=== PATIENT | male | born 1935 ===

== ENCOUNTER 2017-08-01 07:21 | Emergency (ER) | payer MEDICARE ==
[2017-08-01 07:30] VITALS: BMI 22.6
[2017-08-01 07:31] VITALS: TEMP 97; O2SAT 98
[2017-08-01] MEDS ORDERED: Sodium Chloride 0.9% 1,000 ML IV STA (07:48)
--- NOTE | 2017-08-01 08:11 | ED PDOC ---
Lower Extremity Pain/Injury Time Seen by Provider: 08/01/17 07:27 Chief Complaint (Nursing): Lower Extremity Problem/Injury Chief Complaint (Provider): Bilateral lower leg numbness History Per: Patient, EMS History/Exam Limitations: no limitations Onset/Duration Of Symptoms: Days (x 1 month) Current Symptoms Are (Timing): Still Present Additional Complaint(s): Jamil is a 81 y/o male who was brought to the ED by EMS for evaluation of bilateral lower leg numbness and pain, ongoing for 1 month. The numbness is from the knee down. Patient also fell 2 weeks ago and hit his head, but did not seek medical attention. Denies any chest pain, shortness of breath, nausea, vomiting, diarrhea, headache, dizziness, or weakness. During the history, patient is moving hands sporadically but denies history of Parkinson's or dementia. PMD: Dr. De Jesus Neurologist: Dr. Shirley NIHSS Stroke Scale - Date/Time Evaluation Performed Date Performed: 08/01/17 Time Performed: 07:47 - How Severe is the Stroke Level of Consciousness: 0=Alert LOC to Questions: 0=Both comments correct LOC to commands: 0=Obeys both correctly Best Gaze: 0=Normal Visual: 0=No visual loss Facial: 0=Normal Motor Arm - Left: 0=No drift Motor Arm - Right: 0=No drift Motor Leg - Left: 0=No drift Motor Leg - Right: 0=No drift Limb Ataxia: 0=Absent Sensory: 0=Normal Best Language: 0=No aphasia Dysarthia: 0=Normal articulation Extinction & Inattention (Neglect): 0=Normal, no object Score: 0 rTPA Inclusion/Exclusion - Refusal of Treatment Patient Refused Treatment: No - Inclusion Criteria for Altepase Patient is 18 years or Older: Yes The Clinical Diagnosis of Ischemic Stroke That is Causing a Potentially Disabling Neurological Deficit: No Time of Onset is Well Established to be Less Than 270 Minute Before Treatment Would Begin: No Risk/Benefit Discussed With Patient/Family Member Present: No Past Medical History Reviewed: Historical Data, Nursing Documentation, Vital Signs Vital Signs: Last Vital Signs Temp 97 F L 08/01/17 07:30 Pulse 100 H 08/01/17 07:30 Resp 18 08/01/17 07:30 BP 126/85 08/01/17 07:30 Pulse Ox 98 08/01/17 07:30 - Medical History PMH: Anxiety, Arthritis (back and knees), Diabetes, HTN Denies: Chronic Kidney Disease Other PMH: Neuropathy - Surgical History Surgical History: Hernia Repair - Family History Family History: States: Unknown Family Hx - Social History Current smoker - smoking cessation education provided: No Alcohol: Occasional Drugs: Denies - Immunization History Hx Tetanus Toxoid Vaccination: No Hx Influenza Vaccination: No Hx Pneumococcal Vaccination: No - Home Medications Home Medications: Ambulatory Orders Medication Instructions Recorded ALPRAZolam [Xanax] 1 mg PO BID 11/03/16 Benztropine [Cogentin] 1 mg PO TID #90 tab 11/06/16 Gabapentin [Neurontin] 300 mg PO TID #90 cap 11/06/16 Nortriptyline [Pamelor] 25 mg PO Q12 08/01/17 Zolpidem Tartrate [Ambien] 10 mg PO HS 08/01/17 amLODIPine [Norvasc] 5 mg PO DAILY 08/01/17 - Allergies Allergies/Adverse Reactions: Allergies Allergy/AdvReac Type Severity Reaction Status Date / Time No Known Allergies Allergy Verified 11/03/16 14:35 Wells Criteria for PE - Wells Criteria for Pulmonary Embolism Immobilization at least 3 days;Surgery previous 4 weeks: No Total Score: 0 Review of Systems ROS Statement: Except As Marked, All Systems Reviewed And Found Negative Constitutional: Negative for: Fever, Chills Cardiovascular: Negative for: Chest Pain Respiratory: Negative for: Cough, Shortness of Breath Gastrointestinal: Negative for: Nausea, Vomiting, Abdominal Pain, Diarrhea Musculoskeletal: Positive for: Leg Pain (bilateral lower leg, from the knee down ) Neurological: Positive for: Numbness (at bilateral lower legs, from the knee down). Negative for: Weakness, Headache, Dizziness Physical Exam - Reviewed Nursing Documentation Reviewed: Yes Vital Signs Reviewed: Yes - Physical Exam Appears: Positive for: Non-toxic, No Acute Distress Head Exam: Positive for: NORMOCEPHALIC (Left forehead with hematoma). Negative for: ATRAUMATIC Skin: Positive for: Normal Color, Warm, Dry Eye Exam: Positive for: EOMI, Normal appearance, PERRL ENT: Positive for: Normal ENT Inspection. Negative for: Pharyngeal Erythema, Tonsillar Exudate Neck: Positive for: Normal, Painless ROM, Supple Cardiovascular/Chest: Positive for: Regular Rate, Rhythm. Negative for: Murmur Respiratory: Positive for: Normal Breath Sounds. Negative for: Accessory Muscle Use, Respiratory Distress Pulses-Dorsalis Pedis (L): 2+ Pulses-Dorsalis Pedis (R): 2+ Gastrointestinal/Abdominal: Positive for: Normal Exam, Soft. Negative for: Tenderness Back: Positive for: Normal Inspection. Negative for: L CVA Tenderness, R CVA Tenderness, Vertebral Tenderness Extremity: Positive for: Normal ROM (full ROM of lower extremities), Other (5/5 strength throughout all extremities. No gross deformities or deficits). Negative for: Tenderness, Pedal Edema, Deformity Neurologic/Psych: Positive for: Alert, Oriented, Other (On rest, patient with sporadic hand twitching. When provider not in the room, patient has no involuntary movements or twitching). Negative for: Motor/Sensory Deficits - Laboratory Results Result Diagrams: 08/01/17 08:00 08/01/17 08:00 Interpretation Of Abn Labs: 30/1.7 bun/cr worsening - ECG ECG: Positive for: Interpreted By Me, Viewed By Me ECG Rhythm: Positive for: Nonspecific Changes Interpretation Of Abn EKG: same as old O2 Sat by Pulse Oximetry: 98 (RA) Pulse Ox Interpretation: Normal - CT Scan/US CT Head w/o contrast Other Rad Studies (CT/US): Read By Radiologist, Radiology Report Reviewed Other Rad Interpretation: *See findings below US Lower Extrem Vein Bilat Other Rad Studies (CT/US): Read By Radiologist, Radiology Report Reviewed Other Rad Interpretation: No evidence of DVT in right or left lower extremity - Progress ED Course And Treament: CT HEAD W/O CONTRAST IMPRESSION: Limited examination. Patient motion artifact. No evidence of intracranial hemorrhage. Atrophy and chronic white matter ischemic change. Left frontal scalp hematoma. Paranasal sinusitis peer 1121: Stable. AAOx3. Pain controlled. Pending call back from Dr. De Jesus. 1135: Spoke with Dr. De Jesus. Well known to him. Made aware of blood findings. Renal functioning slightly worsening. FU with Dr. De Jesus. Pt. to be dc. Medical Decision Making Medical Decision Making: Old records reviewed. Patient was seen in ED during 10/2016 for issues such as change in mental status, benzodiazepine abuse, and chronic back pain. Time: 7:47 Initial Plan: --EKG --CMP --Troponin I --CBC --Sodium chloride 1000 ml at 1000 mls/hr --Tylenol 650 mg PO --CT Head w/o contrast --US Duplex Lower Extremity Vein, Bilateral --Pending reevaluation Scribe Attestation: Documented by Vashti Whitten, acting as a scribe for Dillon Rivera MD Provider Scribe Attestation: All medical record entries made by the Scribe were at my direction and personally dictated by me. I have reviewed the chart and agree that the record accurately reflects my personal performance of the history, physical exam, medical decision making, and the department course for this patient. I have also personally directed, reviewed, and agree with the discharge instructions and disposition. Disposition - Clinical Impression Clinical Impression: Renal insufficiency, Leg pain Counseled Patient/Family Regarding: Studies Performed, Diagnosis, Need For Followup - Disposition Referrals: Mejia De Jesus MD [Staff Provider] - 08/02/17 Disposition: Routine/Home Disposition Time: 11:37 Condition: STABLE Additional Instructions: Return in 3 days if not better. Instructions: Leg Pain (ED), Impaired Kidney Function (ED) Print Language: AFGHAN
[2017-08-01 08:16] LABS: BASO % 0.2 % (0.0-2.0); EOS # 0.1 K/uL (0.0-0.7); EOS % 1.3 % (0.0-4.0); LYMPH # 0.8 K/uL (1.0-4.3); LYMPH % 10.8 % (20.0-40.0); MEAN CELL VOLUME 89.6 fl (80.0-94.0); MEAN CORPUSCULAR HGB CONC 34.7 g/dL (33.0-37.0); MEAN PLATELET VOLUME 7.1 fl (7.2-11.7); MONO # 0.6 K/uL (0.0-0.8); MONO % 7.8 % (0.0-10.0); NEUT % 79.9 % (50.0-75.0); RED CELL DISTRIBUTION WIDTH 13.8 % (11.5-14.5); WHITE BLOOD COUNT 7.4 K/uL (4.8-10.8)
[2017-08-01 08:53] LABS: ALB/GLOB RATIO 1.3 (1.0-2.1); BILIRUBIN,TOTAL 0.5 mg/dl (0.2-1.3); CALCIUM 9.8 mg/dL (8.4-10.2); POTASSIUM 3.8 MMOL/L (3.6-5.0); TOTAL PROTEIN 6.9 G/DL (6.3-8.2)
[2017-08-01 09:11] LABS: TROPONIN I 0.022 ng/mL (0.00-0.120)
--- NOTE | 2017-08-01 09:24 | CT ---
PROCEDURE: CT HEAD WITHOUT CONTRAST. HISTORY: headache COMPARISON: None available. TECHNIQUE: Axial computed tomography images were obtained through the head/brain without intravenous contrast. Radiation dose: Total exam DLP = 1298.19 mGy-cm. This CT exam was performed using one or more of the following dose reduction techniques: Automated exposure control, adjustment of the mA and/or kV according to patient size, and/or use of iterative reconstruction technique. FINDINGS: HEMORRHAGE: Examination moderately limited due to extensive patient motion artifact. The examination was performed with helical technique due to patient motion. No evidence of intracranial hemorrhage. BRAIN: No mass effect or edema. Mild diffuse age-appropriate cerebral atrophy. Mild chronic periventricular white matter ischemic change. VENTRICLES: Mild ventricular dilatation likely due to ex vacuo dilatation from central greater than peripheral atrophy. No midline shift. CALVARIUM: No fracture. Left frontal scalp hematoma. PARANASAL SINUSES: Chronic ethmoid and frontal sinusitis. MASTOID AIR CELLS: Unremarkable as visualized. No inflammatory changes. OTHER FINDINGS: None. IMPRESSION: Limited examination. Patient motion artifact. No evidence of intracranial hemorrhage. Atrophy and chronic white matter ischemic change. Left frontal scalp hematoma. Paranasal sinusitis peer
--- NOTE | 2017-08-01 10:11 | US ---
PROCEDURE: Bilateral lower extremity venous duplex Doppler. HISTORY: r/o dvt COMPARISON: None available. TECHNIQUE: Bilateral common femoral, superficial femoral, popliteal and posterior tibial veins were evaluated. Flow was assessed with color Doppler, compressibility, assessment of phasic flow and augmentation response. FINDINGS: COMMON FEMORAL VEIN: Right CFV: Unremarkable. Left CFV: Unremarkable. SUPERFICIAL FEMORAL VEIN: Right SFV: Unremarkable. Left SFV: Unremarkable. POPLITEAL VEIN: Right Popliteal: Unremarkable. Left Popliteal: Unremarkable. POSTERIOR TIBIAL VEIN: Right PTV: Unremarkable. Left PTV: Unremarkable. OTHER FINDINGS: None. IMPRESSION: No evidence of deep venous thrombosis in the right or left lower extremity. .
[2017-08-01 13:54] VITALS: BP 126/78; PULSE 78; RESP 19
--- NOTE | 2017-08-01 15:27 | CARD ---
APPROVED REPORT EKG Measurement Heart [id number] <Conclusion> Normal sinus rhythm Septal infarct, age undetermined Possible Lateral infarct, age undetermined Abnormal ECG
== END 2017-08-01 13:54 | disposition home or self-care (01) ==
LOC: H.ER 07:21
DX: R20.2 Paresthesia of skin (principal); R94.4 Abnormal results of kidney function studies; M79.606 Pain in leg, unspecified; E11.9 Type 2 diabetes mellitus without complications; F41.9 Anxiety disorder, unspecified; I10 Essential (primary) hypertension; J32.9 Chronic sinusitis, unspecified
CPT/HCPCS: 70450; 80053; 84484; 85025; 93005; 93970; 99282; J7040

== ENCOUNTER 2017-08-20 13:49 | Inpatient (IN) | payer MEDICARE ==
[2017-08-20 13:49] VITALS: BMI 22.6
[2017-08-20] MEDS ORDERED: Sodium Chloride 0.9% 1,000 ML IV STA ×3 (14:34→19:14)
--- NOTE | 2017-08-20 14:53 | RAD ---
HISTORY: fall COMPARISON: No prior. FINDINGS: LUNGS: The lungs are clear. PLEURA: No significant pleural effusion identified, no pneumothorax apparent. CARDIOVASCULAR: Normal. OSSEOUS STRUCTURES: There are old fracture deformities in 1 of the mid right posterior ribs and multiple old fracture deformities in left mid posterior ribs. VISUALIZED UPPER ABDOMEN: Normal. OTHER FINDINGS: None. IMPRESSION: No acute findings.
--- NOTE | 2017-08-20 14:56 | ED PDOC ---
HPI: Trauma/Fall - HPI Time Seen by Provider: 08/20/17 14:01 Chief Complaint (Nursing): Trauma Chief Complaint (Provider): Fall History Per: Patient, Other (Homemaker) History/Exam Limitations: clinical condition Onset/Duration Of Symptoms: Days (1) Additional Complaint(s): Patient is a 81 y/o male with a past medical history of Parkinson's disease presenting to the emergency department for trauma following a fall this morning. Per homemaker, patient was found on the ground of his apartment this morning. Notes that the last time he was seen well was yesterday morning and also notes that he recently started his medication for Parkinson's disease. It is further noted that patient is a poor historian and cannot recall exactly when he fell. Due to his clinical condition, history is limited. PCP: Dr. Raul Barber (per [facility] prior PMD Neal but recently changed to Sunil) Past Medical History Reviewed: Historical Data, Nursing Documentation, Vital Signs Vital Signs: Last Vital Signs Temp 98.1 F 08/20/17 13:50 Pulse 85 08/20/17 13:50 Resp 16 08/20/17 13:50 BP 109/76 08/20/17 13:50 Pulse Ox 100 08/20/17 13:50 - Medical History PMH: Anxiety, Arthritis (back and knees), Diabetes, HTN, Parkinson's Disease Denies: Chronic Kidney Disease - Surgical History Surgical History: Hernia Repair - Family History Family History: States: Unknown Family Hx - Living Arrangements Living Arrangements: With Friends/Others (Homemaker) - Immunization History Hx Tetanus Toxoid Vaccination: No Hx Influenza Vaccination: No Hx Pneumococcal Vaccination: No - Home Medications Home Medications: Ambulatory Orders Medication Instructions Recorded Benztropine [Cogentin] 1 mg PO TID #90 tab 11/06/16 Gabapentin [Neurontin] 300 mg PO TID #90 cap 11/06/16 Nortriptyline [Pamelor] 25 mg PO Q12 08/01/17 amLODIPine [Norvasc] 5 mg PO DAILY 08/01/17 - Allergies Allergies/Adverse Reactions: Allergies Allergy/AdvReac Type Severity Reaction Status Date / Time No Known Allergies Allergy Verified 11/03/16 14:35 Review of Systems Review Of Systems: ROS cannot be obtained secondary to pt's inabilty to answer questions. Physical Exam - Reviewed Nursing Documentation Reviewed: Yes Vital Signs Reviewed: Yes - Physical Exam Appears: Positive for: No Acute Distress (significantly dehydrated, multiple visible sores/abrasions (appear older than one day)) Head Exam: Positive for: NORMOCEPHALIC. Negative for: ATRAUMATIC Skin: Positive for: Normal Color (with old chronic-appearing ulcer to right cheek, sores to chest, abrasions/contusions to legs and arms), Warm, Dry Eye Exam: Positive for: Periorbital swelling (right eye), Other (discharge from right eye). Negative for: Normal appearance ENT: Positive for: Other (Dry mucuous membranes) Neck: Positive for: Normal Cardiovascular/Chest: Positive for: Regular Rate, Rhythm. Negative for: Murmur Respiratory: Positive for: Normal Breath Sounds. Negative for: Accessory Muscle Use, Respiratory Distress Pulses-Radial (L): 3+/4+ Pulses-Radial (R): 3+/4+ Gastrointestinal/Abdominal: Negative for: Tenderness, Guarding Back: Negative for: Vertebral Tenderness Extremity: Positive for: Normal ROM, Other (Abrasions and contusions to both knees and elbows). Negative for: Pedal Edema Neurologic/Psych: Positive for: Alert, Oriented (x2 to person and hospital), Motor/Sensory Deficits (LE weakness b/l), Mood/Affect (labile), Cerebellar Tests (parkinsonian), Other (5/5 strength upper extremities. 3/5 strength lower extremities. Dysarthria.) - Laboratory Results Result Diagrams: 08/21/17 05:30 08/21/17 05:30 - ECG O2 Sat by Pulse Oximetry: 100 (RA) Pulse Ox Interpretation: Normal Medical Decision Making Medical Decision Making: Time: 14:33 Initial impression: Work up plan will include fall/trauma. Rule out rhabdomyolysis infection, CVA, dehydration vs. others. Initial plan: C-spine CT w/o contrast Head CT w/o contrast Maxillofacial CT w/o EKG Labs: CMP, Creatinine, Lipase, Troponin, CBC Chest X-ray Normal saline 1 L IV Blood culture Urine culture Pelvis X-ray Urinalysis Reevaluation 14:51 Chest X-ray reviewed. Findings noted as follows: FINDINGS: LUNGS: The lungs are clear. PLEURA: No significant pleural effusion identified, no pneumothorax apparent. CARDIOVASCULAR: Normal. OSSEOUS STRUCTURES: There are old fracture deformities in 1 of the mid right posterior ribs and multiple old fracture deformities in left mid posterior ribs. VISUALIZED UPPER ABDOMEN: Normal. OTHER FINDINGS: None. IMPRESSION: No acute findings. 16:20 Patient's condition remains stable. CT scan and pelvis x-ray report pending. 16:50 Pelvis x-ray reviewed. Findings noted as follows: BONES: The pelvic ring is intact. There is no acute displaced fracture or bone destruction. There is diffuse bone demineralization. JOINTS: The hip joint spaces are preserved. There is degenerative osteoarthrosis in the sacroiliac joints. There is no significant osteitis pubis OTHER FINDINGS: None. IMPRESSION: No acute displaced fracture or dislocation. Please note occult fractures cannot be excluded on plain radiographs. If there is a persistent clinical concern, an MRI of the hip may be performed for further evaluation. 16:[address] Barragan in regards to x-ray findings. 18:[address] reviewed. Findings noted as follows: FINDINGS: HEMORRHAGE: No intracranial hemorrhage. BRAIN: Diffuse cerebral atrophy chronic microangiopathy are reiterated with no intracranial acute findings appreciable throughout. There is no mass effect or suspicious extra-axial fluid collection appreciated. Midline brain anatomy is stable. VENTRICLES: Unremarkable. No hydrocephalus. CALVARIUM: Unremarkable. PARANASAL SINUSES: Unremarkable as visualized. No significant inflammatory changes. MASTOID AIR CELLS: Unremarkable as visualized. No inflammatory changes. OTHER FINDINGS: Left frontal scalp hematoma is slowly diminishing. IMPRESSION: Once again, there are no acute intracranial findings. Slowly diminishing left frontal scalp. Age related neuro degenerative changes are again identified. 18:[address] C-[address] reviewed. Findings noted as follows: FINDINGS: VERTEBRAE: No definitive acute fracture or spondylolisthesis appreciated however gross anterior spondylosis appreciated including large syndesmophytes incidentally double the anteroposterior diameter of the vertebral bodies at C3 and C4 as well as C6. C1-2 articulation and craniocervical junction appear degenerated. Prevertebral soft tissues are distorted by gross anterior spondylosis are otherwise unremarkable. DISCS/SPINAL CANAL/NEURAL FORAMINA: Mild right C4 and C5 neural foraminal stenosis seen with none on the left. Additional did neural foraminal stenoses are difficult to evaluate its the 8 and T1 due to patient's marked kyphotic thoracic spinal deformity. PARASPINAL SOFT TISSUES: Unremarkable. OTHER FINDINGS: None. IMPRESSION: No definitive fracture appreciable or gross spondylolisthesis. Gross anterior syndesmotic formation is appreciated throughout the cervical spine cyst sparing only C1 nearly doubling the anteroposterior diameter of multiple cervical vertebral bodies and distorting the prevertebral soft tissues somewhat. No severe bony central canal stenosis. Mild right C4-C5 root foraminal stenoses are identified and likely also stated T1 right neural foramina of the but are difficult to evaluate due to gross kyphotic thoracic spinal deformity. 18:[address] reviewed. Findings noted as follows: FINDINGS: Examination is compromised by relatively extensive motion artifacts. A definitive fracture throughout the visualized frontal, temporal and sphenoid bones is not identified nor the mandible and maxilla however repeat CT is advised when patient is able to maintain positioning for this type of CT examination. No lytic or blastic changes are identified and mucosal inflammatory changes affect numerous ethmoid and bilateral maxillary sinuses. IMPRESSION: A gross fracture is not appreciated however this study is not diagnostic for medium or small fractures due to motion artifacts. Repeat CT is recommended when patient able to maintain positioning. labs reveal elev CK c/w rhabdomyolysis trop neg Funeral Pre Arrangement Specialist normal IVF initiated D/w Dr Barragan for admission Scribe Attestation: Documented by Jenn Adames, acting as a scribe for Cody Moore DO. Provider Scribe Attestation: All medical record entries made by the Scribe were at my direction and personally dictated by me. I have reviewed the chart and agree that the record accurately reflects my personal performance of the history, physical exam, medical decision making, and the department course for this patient. I have also personally directed, reviewed, and agree with the discharge instructions and disposition. Disposition - Clinical Impression Clinical Impression: Rhabdomyolysis, Multiple contusions, Dehydration, Head injury, Parkinsonian features - Patient ED Disposition Is Patient to be Admitted: Yes - Disposition Disposition Time: 16:45 Condition: GUARDED - Pt Status Changed To: Hospital Disposition Of: Inpatient - Admit Certification Admit to Inpatient:: After my assessment, the patient will require hospitalization for at least two midnights. This is because of the severity of symptoms shown, intensity of services needed, and/or the medical risk in this patient being treated as an outpatient. - POA Present On Arrival: Falls Or Trauma, Pressure Ulcer (multiple to extremities, chest, face)
[2017-08-20 15:20] LABS: BASO # 0.1 K/uL (0.0-0.2); BASO % 0.5 % (0.0-2.0); HEMATOCRIT 37.8 % (35.0-51.0); LYMPH # 0.8 K/uL (1.0-4.3); LYMPH % 6.1 % (20.0-40.0); MEAN CELL VOLUME 92.2 fl (80.0-94.0); MEAN CORPUSCULAR HEMOGLOBIN 29.5 pg (27.0-31.0); MEAN PLATELET VOLUME 8.4 fl (7.2-11.7); MONO # 1.2 K/uL (0.0-0.8); NEUT # 11.3 K/uL (1.8-7.0); NEUT % 84.4 % (50.0-75.0); NRBC % 0.1 % (0.0-0.0); PLATELET COUNT 232 K/uL (130-400); RED CELL DISTRIBUTION WIDTH 13.7 % (11.5-14.5); WHITE BLOOD COUNT 13.4 K/uL (4.8-10.8)
[2017-08-20 15:49] LABS: ALB/GLOB RATIO 0.9 (1.0-2.1); ALKALINE PHOSPHATASE 82 U/L (38-126); ALT/SGPT 75 U/L (21-72); AST/SGOT 190 U/L (17-59)
[2017-08-20 15:50] LABS: BLOOD UREA NITROGEN 27 mg/dl (9-20); CARBON DIOXIDE 27 mmol/L (22-30); GFR AFRICAN-AMERICAN > 60; GLUCOSE,RANDOM 123 mg/dL (75-110); LIPASE 22 U/L (23-300); POTASSIUM 5.1 MMOL/L (3.6-5.0); SODIUM 146 mmol/l (132-148); TOTAL PROTEIN 8.2 G/DL (6.3-8.2)
[2017-08-20 16:35] LABS: URINE BILIRUBIN NEGATIVE (NEGATIVE); URINE BLOOD MODERATE (NEGATIVE); URINE COLOR YELLOW (YELLOW); URINE GLUCOSE (UA) NEG (Normal); URINE KETONE TRACE mg/dL (NEGATIVE); URINE LEUKOCYTE ESTERASE NEG Leu/uL (Negative); URINE PROTEIN 100 mg/dL (NEGATIVE); WBC URINE 4 /hpf (0-5)
[2017-08-20 16:37] LABS: NEUTROPHIL 81 % (42-75); TOTAL CELLS COUNTED 100
[2017-08-20 16:38] LABS: LARGE PLATELETS PRESENT
[2017-08-20 16:38] LABS: RBC URINE 12 /hpf (0-3)
--- NOTE | 2017-08-20 16:42 | RAD ---
PROCEDURE: Radiographs of the pelvis. HISTORY: fall COMPARISON: None. FINDINGS: BONES: The pelvic ring is intact. There is no acute displaced fracture or bone destruction. There is diffuse bone demineralization. JOINTS: The hip joint spaces are preserved. There is degenerative osteoarthrosis in the sacroiliac joints. There is no significant osteitis pubis OTHER FINDINGS: None. IMPRESSION: No acute displaced fracture or dislocation. Please note occult fractures cannot be excluded on plain radiographs. If there is a persistent clinical concern, an MRI of the hip may be performed for further evaluation.
[2017-08-20] MEDS ORDERED: Propofol 10 mg/ml Inj (20 ML) IV ONE ×3 (17:07→17:15)
[2017-08-20] MEDS ORDERED: Propofol 10 mg/ml Inj (20 ML) ONE (17:15)
--- NOTE | 2017-08-20 18:18 | CT ---
PROCEDURE: CT HEAD WITHOUT CONTRAST. HISTORY: r/o ICH COMPARISON: Unenhanced head CT 07/20/2017. TECHNIQUE: Axial computed tomography images were obtained through the head/brain without intravenous contrast. Radiation dose: Total exam DLP = 1362.72 mGy-cm. This CT exam was performed using one or more of the following dose reduction techniques: Automated exposure control, adjustment of the mA and/or kV according to patient size, and/or use of iterative reconstruction technique. FINDINGS: HEMORRHAGE: No intracranial hemorrhage. BRAIN: Diffuse cerebral atrophy chronic microangiopathy are reiterated with no intracranial acute findings appreciable throughout. There is no mass effect or suspicious extra-axial fluid collection appreciated. Midline brain anatomy is stable. VENTRICLES: Unremarkable. No hydrocephalus. CALVARIUM: Unremarkable. PARANASAL SINUSES: Unremarkable as visualized. No significant inflammatory changes. MASTOID AIR CELLS: Unremarkable as visualized. No inflammatory changes. OTHER FINDINGS: Left frontal scalp hematoma is slowly diminishing. IMPRESSION: Once again, there are no acute intracranial findings. Slowly diminishing left frontal scalp. Age related neuro degenerative changes are again identified.
--- NOTE | 2017-08-20 18:26 | CT ---
PROCEDURE: CT Cervical Spine without contrast HISTORY: <trauma r/o fx> COMPARISON: None available. TECHNIQUE: Axial computed tomography images were obtained of the cervical spine without the use of intravenous contrast. Coronal and sagittal reformatted images were created and reviewed. Radiation dose: Total exam DLP = 440.93 mGy-cm. This CT exam was performed using one or more of the following dose reduction techniques: Automated exposure control, adjustment of the mA and/or kV according to patient size, and/or use of iterative reconstruction technique. FINDINGS: VERTEBRAE: No definitive acute fracture or spondylolisthesis appreciated however gross anterior spondylosis appreciated including large syndesmophytes incidentally double the anteroposterior diameter of the vertebral bodies at C3 and C4 as well as C6. C1-2 articulation and craniocervical junction appear degenerated. Prevertebral soft tissues are distorted by gross anterior spondylosis are otherwise unremarkable. DISCS/SPINAL CANAL/NEURAL FORAMINA: Mild right C4 and C5 neural foraminal stenosis seen with none on the left. Additional did neural foraminal stenoses are difficult to evaluate its the 8 and T1 due to patient's marked kyphotic thoracic spinal deformity. PARASPINAL SOFT TISSUES: Unremarkable. OTHER FINDINGS: None. IMPRESSION: No definitive fracture appreciable or gross spondylolisthesis. Gross anterior syndesmotic formation is appreciated throughout the cervical spine cyst sparing only C1 nearly doubling the anteroposterior diameter of multiple cervical vertebral bodies and distorting the prevertebral soft tissues somewhat. No severe bony central canal stenosis. Mild right C4-C5 root foraminal stenoses are identified and likely also stated T1 right neural foramina of the but are difficult to evaluate due to gross kyphotic thoracic spinal deformity.
--- NOTE | 2017-08-20 18:36 | CT ---
PROCEDURE: CT MAXILLOFACIAL BONES WITHOUT CONTRAST HISTORY: fall R orbital trauma, facial ulcer COMPARISON: None TECHNIQUE: Contiguous axial CT images of the maxillofacial bones were obtained. Coronal and sagittal reformats were generated. Radiation dose: Total exam DLP = 1331.21 mGy-cm. This CT exam was performed using one or more of the following dose reduction techniques: Automated exposure control, adjustment of the mA and/or kV according to patient size, and/or use of iterative reconstruction technique. FINDINGS: Examination is compromised by relatively extensive motion artifacts. A definitive fracture throughout the visualized frontal, temporal and sphenoid bones is not identified nor the mandible and maxilla however repeat CT is advised when patient is able to maintain positioning for this type of CT examination. No lytic or blastic changes are identified and mucosal inflammatory changes affect numerous ethmoid and bilateral maxillary sinuses. IMPRESSION: A gross fracture is not appreciated however this study is not diagnostic for medium or small fractures due to motion artifacts. Repeat CT is recommended when patient able to maintain positioning.
[2017-08-21 06:06] LABS: BASO % 0.3 % (0.0-2.0); EOS % 0.3 % (0.0-4.0); LYMPH # 1.1 K/uL (1.0-4.3); LYMPH % 13.3 % (20.0-40.0); MEAN CORPUSCULAR HEMOGLOBIN 30.3 pg (27.0-31.0); MEAN CORPUSCULAR HGB CONC 32.9 g/dL (33.0-37.0); MEAN PLATELET VOLUME 7.7 fl (7.2-11.7); MONO # 0.7 K/uL (0.0-0.8); MONO % 8.6 % (0.0-10.0); NEUT # 6.4 K/uL (1.8-7.0); NEUT % 77.5 % (50.0-75.0); RED CELL DISTRIBUTION WIDTH 13.5 % (11.5-14.5); WHITE BLOOD COUNT 8.3 K/uL (4.8-10.8)
[2017-08-21 07:02] LABS: T4 5.07 ug/dl (5.5-11.0)
[2017-08-21 07:05] LABS: ALKALINE PHOSPHATASE 75 U/L (38-126); ALT/SGPT 80 U/L (21-72); AST/SGOT 145 U/L (17-59); BILIRUBIN,TOTAL 0.5 mg/dl (0.2-1.3); BLOOD UREA NITROGEN 23 mg/dl (9-20); CALCIUM 9.2 mg/dL (8.4-10.2); CARBON DIOXIDE 27 mmol/L (22-30); CHLORIDE 114 mmol/L (98-107); CHOLESTEROL 132 mg/dL (0-199); GFR AFRICAN-AMERICAN > 60; GLUCOSE,RANDOM 100 mg/dL (75-110); POTASSIUM 3.9 MMOL/L (3.6-5.0); SODIUM 150 mmol/l (132-148); TOTAL PROTEIN 6.7 G/DL (6.3-8.2)
[2017-08-21 07:13] LABS: THYROID STIMULATING HORMONE 6.44 mIU/ML (0.46-4.68)
--- NOTE | 2017-08-21 11:35 | CARD ---
APPROVED REPORT EXAM: Two-dimensional and M-mode echocardiogram with Doppler and color Doppler. Other Information Quality : AverageRhythm : NSR INDICATION Syncope Fall. 2D DIMENSIONS IVSd0.83 (0.7-1.1cm)LVDd4.21 (3.9-5.9cm) LVOT Diameter2.03 (1.8-2.4cm)PWd0.93 (0.7-1.1cm) IVSs1.13 (0.8-1.2cm)LVDs3.22 (2.5-4.0cm) FS (%) 23.5 %PWs1.13 (0.8-1.2cm) M-Mode DIMENSIONS Left Atrium (MM)3.68 (2.5-4.0cm)IVSd0.71 (0.7-1.1cm) Aortic Root3.26 (2.2-3.7cm)LVDd5.32 (4.0-5.6cm) Aortic Cusp Exc.1.85 (1.5-2.0cm)PWd0.88 (0.7-1.1cm) IVSs1.21 cmFS (%) 23 % LVDs4.09 (2.0-3.8cm)PWs1.18 cm Mitral Valve MV E Cjzaeysa25.3cm/sMV DECEL [id number] A Lbajohah22.7cm/s MV [id number] ratio0.8MVA (PHT)3.63cm2 TDI Lateral E' Peak V13.61cm/sMedial E' Peak V4.73cm/sE/Lateral E'4.8 E/Medial E'13.8 LEFT VENTRICLE The left ventricle is normal size. There is normal left ventricular wall thickness. The left ventricular function is normal. The left ventricular ejection fraction is 50-55% There is normal LV segmental wall motion. The left ventricular diastolic function is normal. No left ventricle thrombus noted on this study. There is no ventricular septal defect visualized. There is no left ventricular aneurysm. There is no mass noted in the left ventricle. RIGHT VENTRICLE The right ventricle is normal size. There is normal right ventricular wall thickness. The right ventricular systolic function is normal. ATRIA The left atrium size is normal. The right atrium size is normal. The interatrial septum is intact with no evidence for an atrial septal defect. AORTIC VALVE The aortic valve is mildly sclerotic. No aortic regurgitation is present. There is no aortic valvular stenosis. There is no aortic valvular vegetation. MITRAL VALVE The mitral valve is normal in structure. There is no evidence of mitral valve prolapse. There is no mitral valve stenosis. Mitral regurgitation is mild. TRICUSPID VALVE The tricuspid valve is normal in structure. There is no tricuspid valve regurgitation noted. There is no tricuspid valve prolapse or vegetation. There is no tricuspid valve stenosis. PULMONIC VALVE The pulmonary valve is normal in structure. There is no pulmonic valvular regurgitation. There is no pulmonic valvular stenosis. GREAT VESSELS The aortic root is normal in size. The ascending aorta is normal in size. The IVC is normal in size and collapses >50% with inspiration. PERICARDIAL EFFUSION The pericardium appears normal. There is no pleural effusion. <Conclusion> Normal LV Function LVEF 50-55% Mild Mitral Regurgitation Aortic Valve Sclerosis
--- NOTE | 2017-08-21 11:40 | US ---
PROCEDURE: Duplex ultrasound of the carotid and vertebral arteries. HISTORY: fall COMPARISON: None available. TECHNIQUE: Grayscale and duplex Doppler evaluation of the cervical carotid and vertebral arteries were performed. The common carotid, carotid bifurcations and cervical ICA and proximal ECA were evaluated. The vertebral arteries were evaluated for gross patency and direction. FINDINGS: RIGHT CAROTID ARTERIES: Common Carotid Artery: Intimal thickening is present Maximal flow velocity of 76.5 cm/s. Carotid Bifurcation: Normal. Internal Carotid Artery:Normal. Maximal flow velocity of 43.8 cm/s. External Carotid Artery (proximal branches): Normal. Maximal flow velocity of 63.8 cm/s. ICA/CCA Ratio: 0.6 LEFT CAROTID ARTERIES: Common Carotid Artery: Intimal thickening is present Maximal flow velocity of 75.7 cm/s. Carotid Bifurcation: Heterogeneous plaque formation. Internal Carotid Artery:Heterogeneous plaque formation. Maximal flow velocity of 60.0 cm/s. External Carotid Artery (proximal branches): Normal. Maximal flow velocity of 69.1 cm/s. ICA/CCA Ratio: 0.9 less feels VERTEBRAL ARTERIES: Right Vertebral Artery: Patent. Antegrade flow. Left Vertebral Artery: Patent. Antegrade flow. OTHER FINDINGS: None. IMPRESSION: Right ICA degree of stenosis: Less than 50% Left ICA degree of stenosis: Less than 50% Reference Internal Carotid Artery (ICA) Peak Systolic Velocity (PSV) for above: 1. Less than 50% stenosis less than 125 cm/s peak systolic velocity 2. 50-69% stenosis 125-230cm/s peak systolic velocity 3. Greater than 70% but less than near occlusion greater than 230 cm/s peak systolic velocity
--- NOTE | 2017-08-21 11:49 | CARD ---
APPROVED REPORT EKG Measurement Heart [id number] <Conclusion> Sinus rhythm with premature atrial complexes Prolonged QT Abnormal ECG
--- NOTE | 2017-08-21 13:47 | CP.PCM.CON ---
History of Present Illness - History of Present Illness History of Present Illness: CONSULT REQUESTED FOR PATIENT FOR CONFUSION pt with history of parkinson presented to ED for evaluation of fall, patient was found by friend laying on floor soiled with urine. pt presented with sores on face, abdomen, and chest wall. 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 she reported there has been recent change in his medications by PMD since then there has been more confusion, denied that pt received any psychiatric treatment before and reported before the fall his mood was well with no changes in sleep or appetite Past Patient History - Past Medical History & Family History Past Medical History?: Yes - Past Social History Smoking Status: Never Smoked - CARDIAC Hx Hypertension: Yes - PULMONARY Hx Respiratory Disorders: No - NEUROLOGICAL Hx Parkinson's Disease: Yes - HEENT Hx HEENT Problems: No - RENAL Hx Chronic Kidney Disease: No - ENDOCRINE/METABOLIC Hx Endocrine Disorders: No - HEMATOLOGICAL/ONCOLOGICAL Hx Blood Disorders: No - INTEGUMENTARY Hx Dermatological Problems: No - MUSCULOSKELETAL/RHEUMATOLOGICAL Hx Arthritis: Yes (back and knees) - GASTROINTESTINAL Hx Gastrointestinal Disorders: No - GENITOURINARY/GYNECOLOGICAL Hx Genitourinary Disorders: No - PSYCHIATRIC Hx Anxiety: Yes Hx Substance Use: No - SURGICAL HISTORY Hx Surgeries: Yes Hx Herniorrhaphy: Yes - ANESTHESIA Hx Anesthesia: Yes Hx Anesthesia Reactions: No Meds Allergies/Adverse Reactions: Allergies Allergy/AdvReac Type Severity Reaction Status Date / Time No Known Allergies Allergy Verified 11/03/16 14:35 - Medications Medications: Current Medications Benztropine Mesylate (Cogentin) 1 mg PO TID [facility] Last Admin: 08/21/17 12:47 Dose: 1 mg Dextrose/Sodium Chloride (Dextrose 5%-0.9% Ns 500 Ml) 500 mls @ 100 mls/hr IV .Q5H [facility] Stop: 08/22/17 07:06 Last Admin: 08/21/17 07:48 Dose: 100 mls/hr Nortriptyline HCl (Pamelor) 25 mg PO Q12 [facility] Last Admin: 08/21/17 12:47 Dose: 25 mg Physical Exam - Psychiatric Exam Additional comments: on evaluation, pt calm cooperative , seen eating, denied changes in sleep or appetite reported mood well appropriate affect, confused oriented to person only alert and awake Results - Vital Signs Recent Vital Signs: Last Vital Signs Temp 98.1 F 08/20/17 13:50 Pulse 74 08/21/17 13:02 Resp 16 08/21/17 13:02 BP 113/82 08/21/17 13:02 Pulse Ox 100 08/21/17 13:02 - Labs Result Diagrams: 08/21/17 05:30 08/21/17 05:30 Labs: Laboratory Results - last 24 hr 08/20/17 08/20/17 08/20/17 15:10 15:10 16:16 WBC 13.4 H D RBC 4.10 L Hgb 12.1 Hct 37.8 MCV 92.2 D MCH 29.5 MCHC 32.0 L RDW 13.7 Plt Count 232 MPV 8.4 Neut % (Auto) 84.4 H Lymph % (Auto) 6.1 L [place] % (Auto) 9.0 Eos % (Auto) 0.0 Baso % (Auto) 0.5 Neut # 11.3 H Lymph # 0.8 L [place] # 1.2 H Eos # 0.0 Baso # 0.1 Neutrophils % (Manual) 81 H Band Neutrophils % 2 Lymphocytes % (Manual) 9 L Monocytes % (Manual) 8 Platelet Estimate Normal Large Platelets Present Hypochromasia (manual) Slight Anisocytosis (manual) Slight Sodium 146 Potassium 5.1 H Chloride 108 H Carbon Dioxide 27 Anion Gap 16 BUN 27 H Creatinine 1.3 Est GFR ( Amer) > 60 Est GFR (Non-Af Amer) 53 Random Glucose 123 H Calcium 10.0 Total Bilirubin 1.0 AST 190 H D ALT 75 H D Alkaline Phosphatase 82 Total Creatine Kinase 5866 H Troponin I 0.0160 Total Protein 8.2 Albumin 4.0 Globulin 4.3 H Albumin/Globulin Ratio 0.9 L Triglycerides Cholesterol LDL Cholesterol Direct HDL Cholesterol Lipase 22 L Thyroxine (T4) TSH 3rd Generation Urine Color Yellow Urine Clarity Slighty-cloudy Urine pH 5.0 Ur Specific [place] 1.028 Urine Protein 100 Urine Glucose (UA) Neg Urine Ketones Trace Urine Blood Moderate Urine Nitrate Negative Urine Bilirubin Negative Urine Urobilinogen 4.0 Ur Leukocyte Esterase Neg Urine RBC (Auto) 12 H Urine Microscopic WBC 4 Ur Squamous Epith Cells < 1 08/21/17 08/21/17 05:30 05:30 WBC 8.3 RBC 3.48 L Hgb 10.5 L Hct 32.0 L MCV 92.0 MCH 30.3 MCHC 32.9 L RDW 13.5 Plt Count 191 MPV 7.7 Neut % (Auto) 77.5 H Lymph % (Auto) 13.3 L [place] % (Auto) 8.6 Eos % (Auto) 0.3 Baso % (Auto) 0.3 Neut # 6.4 Lymph # 1.1 [place] # 0.7 Eos # 0.0 Baso # 0.0 Neutrophils % (Manual) Band Neutrophils % Lymphocytes % (Manual) Monocytes % (Manual) Platelet Estimate Large Platelets Hypochromasia (manual) Anisocytosis (manual) Sodium 150 H Potassium 3.9 Chloride 114 H Carbon Dioxide 27 Anion Gap 12 BUN 23 H Creatinine 1.3 Est GFR ( Amer) > 60 Est GFR (Non-Af Amer) 53 Random Glucose 100 Calcium 9.2 Total Bilirubin 0.5 AST 145 H D ALT 80 H Alkaline Phosphatase 75 Total Creatine Kinase Troponin I Total Protein 6.7 Albumin 3.3 L Globulin 3.4 Albumin/Globulin Ratio 1.0 Triglycerides 56 Cholesterol 132 LDL Cholesterol Direct 58 HDL Cholesterol 41 Lipase Thyroxine (T4) 5.07 L TSH 3rd Generation 6.44 H Urine Color Urine Clarity Urine pH Ur Specific [place] Urine Protein Urine Glucose (UA) Urine Ketones Urine Blood Urine Nitrate Urine Bilirubin Urine Urobilinogen Ur Leukocyte Esterase Urine RBC (Auto) Urine Microscopic WBC Ur Squamous Epith Cells Assessment & Plan - Assessment and Plan (Free Text) 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
[2017-08-21 15:49] LABS: CHLORIDE 108 mmol/L (98-107)
--- NOTE | 2017-08-21 16:03 | CP.PCM.CON ---
History of Present Illness - History of Present Illness History of Present Illness: consultation for syncope HPI: Past Patient History - Past Medical History & Family History Past Medical History?: Yes - Past Social History Smoking Status: Never Smoked - CARDIAC Hx Cardiac Disorders: Yes (HTN) - PULMONARY Hx Respiratory Disorders: No - NEUROLOGICAL Hx Neurological Disorder: Yes (PARKINSONS) - HEENT Hx HEENT Problems: No - RENAL Hx Chronic Kidney Disease: No - ENDOCRINE/METABOLIC Hx Endocrine Disorders: Yes (DM) - HEMATOLOGICAL/ONCOLOGICAL Hx Blood Disorders: No - INTEGUMENTARY Hx Dermatological Problems: No - MUSCULOSKELETAL/RHEUMATOLOGICAL Hx Arthritis: Yes (back and knees) - GASTROINTESTINAL Hx Gastrointestinal Disorders: No - GENITOURINARY/GYNECOLOGICAL Hx Genitourinary Disorders: No - PSYCHIATRIC Hx Psychophysiologic Disorder: Yes (ANXIETY) - SURGICAL HISTORY Hx Surgeries: Yes Hx Herniorrhaphy: Yes - ANESTHESIA Hx Anesthesia: Yes Hx Anesthesia Reactions: No Meds Allergies/Adverse Reactions: Allergies Allergy/AdvReac Type Severity Reaction Status Date / Time No Known Allergies Allergy Verified 11/03/16 14:35 - Medications Medications: Current Medications Benztropine Mesylate (Cogentin) 1 mg PO TID [facility] Last Admin: 08/21/17 12:47 Dose: 1 mg Dextrose/Sodium Chloride (Dextrose 5%-0.9% Ns 500 Ml) 500 mls @ 100 mls/hr IV .Q5H [facility] Stop: 08/22/17 07:06 Last Admin: 08/21/17 15:13 Dose: 100 mls/hr Nortriptyline HCl (Pamelor) 25 mg PO Q12 [facility] Last Admin: 08/21/17 12:47 Dose: 25 mg Results - Vital Signs Recent Vital Signs: Last Vital Signs Temp 98.1 F 08/20/17 13:50 Pulse 64 08/21/17 15:21 Resp 16 08/21/17 15:21 BP 141/75 08/21/17 15:21 Pulse Ox 97 08/21/17 15:21 - Labs Result Diagrams: 08/21/17 05:30 08/21/17 05:30 Labs: Laboratory Results - last 24 hr 08/20/17 08/20/17 08/20/17 15:10 15:10 16:16 WBC RBC Hgb Hct MCV MCH MCHC RDW Plt Count MPV Neut % (Auto) Lymph % (Auto) [place] % (Auto) Eos % (Auto) Baso % (Auto) Neut # Lymph # [place] # Eos # Baso # Neutrophils % (Manual) 81 H Band Neutrophils % 2 Lymphocytes % (Manual) 9 L Monocytes % (Manual) 8 Platelet Estimate Normal Large Platelets Present Hypochromasia (manual) Slight Anisocytosis (manual) Slight Sodium Potassium Chloride 108 H Carbon Dioxide Anion Gap BUN Creatinine Est GFR ( Amer) Est GFR (Non-Af Amer) Random Glucose Calcium Total Bilirubin AST ALT Alkaline Phosphatase Total Creatine Kinase 5866 H Total Protein Albumin Globulin Albumin/Globulin Ratio Triglycerides Cholesterol LDL Cholesterol Direct HDL Cholesterol Thyroxine (T4) TSH 3rd Generation Urine Color Yellow Urine Clarity Slighty-cloudy Urine pH 5.0 Ur Specific [place] 1.028 Urine Protein 100 Urine Glucose (UA) Neg Urine Ketones Trace Urine Blood Moderate Urine Nitrate Negative Urine Bilirubin Negative Urine Urobilinogen 4.0 Ur Leukocyte Esterase Neg Urine RBC (Auto) 12 H Urine Microscopic WBC 4 Ur Squamous Epith Cells < 1 08/21/17 08/21/17 05:30 05:30 WBC 8.3 RBC 3.48 L Hgb 10.5 L Hct 32.0 L MCV 92.0 MCH 30.3 MCHC 32.9 L RDW 13.5 Plt Count 191 MPV 7.7 Neut % (Auto) 77.5 H Lymph % (Auto) 13.3 L [place] % (Auto) 8.6 Eos % (Auto) 0.3 Baso % (Auto) 0.3 Neut # 6.4 Lymph # 1.1 [place] # 0.7 Eos # 0.0 Baso # 0.0 Neutrophils % (Manual) Band Neutrophils % Lymphocytes % (Manual) Monocytes % (Manual) Platelet Estimate Large Platelets Hypochromasia (manual) Anisocytosis (manual) Sodium 150 H Potassium 3.9 Chloride 114 H Carbon Dioxide 27 Anion Gap 12 BUN 23 H Creatinine 1.3 Est GFR ( Amer) > 60 Est GFR (Non-Af Amer) 53 Random Glucose 100 Calcium 9.2 Total Bilirubin 0.5 AST 145 H D ALT 80 H Alkaline Phosphatase 75 Total Creatine Kinase Total Protein 6.7 Albumin 3.3 L Globulin 3.4 Albumin/Globulin Ratio 1.0 Triglycerides 56 Cholesterol 132 LDL Cholesterol Direct 58 HDL Cholesterol 41 Thyroxine (T4) 5.07 L TSH 3rd Generation 6.44 H Urine Color Urine Clarity Urine pH Ur Specific [place] Urine Protein Urine Glucose (UA) Urine Ketones Urine Blood Urine Nitrate Urine Bilirubin Urine Urobilinogen Ur Leukocyte Esterase Urine RBC (Auto) Urine Microscopic WBC Ur Squamous Epith Cells Assessment & Plan (1) Dehydration Status: Acute (2) Head injury Status: Acute (3) Parkinsonian features Status: Acute (4) Rhabdomyolysis Status: Acute (5) Change in mental status Status: Acute (6) Leg pain Status: Acute (7) Renal insufficiency Status: Acute
--- NOTE | 2017-08-21 16:28 | CP.PCM.HP ---
History of Present Illness - History of Present Illness History of Present Illness: CC: Syncope/ Trauma. 81 y/o M, Hx of Parkinson's Disease, [facility] found by a friend on DOA. As per EMS, Pt was found in his apartment by a friend lying on floor, unknown onset of event, associated to multiple abrasions, contusions , sores to face, abdomen and chest wall from fall, c/o of body pain, moderate intensity 8:10, also found soiled with urine. Worsening symptoms: AMS, weaknesses, found with dehydration in the ER. Aggravated factor: Unable to speak or understand. No report of: Fever, chills, n/v/d, abdominal pain, CP, SOB. Head CT showed: No acute intracranial finding. Maxillofacial CT: No Fx. Cervical Spine CT: No Fx. CXR: No acute finding. Echo: LVEF 50-55%. Carotid U-S: R-L degree of stenosis less than 50%. Pelvis X Ray: No Fx or dislocation. Present on Admission - Present on Admission Any Indicators Present on Admission: No Review of Systems - Review of Systems Systems not reviewed;Unavailable: Acuity of Condition, Altered Mental Status Past Patient History - Past Medical History & Family History Past Medical History?: Yes Pertinent Family History: Unknown - Past Social History Smoking Status: Never Smoked Alcohol: None Drugs: Denies Home Situation {Lives}: Alone - CARDIAC Hx Cardiac Disorders: Yes (HTN) - PULMONARY Hx Respiratory Disorders: No - NEUROLOGICAL Hx Neurological Disorder: Yes (PARKINSONS) - HEENT Hx HEENT Problems: No - RENAL Hx Chronic Kidney Disease: No - ENDOCRINE/METABOLIC Hx Endocrine Disorders: Yes (DM) - HEMATOLOGICAL/ONCOLOGICAL Hx Blood Disorders: No - INTEGUMENTARY Hx Dermatological Problems: No - MUSCULOSKELETAL/RHEUMATOLOGICAL Hx Musculoskeletal Disorders: Yes Hx Arthritis: Yes (back and knees) - GASTROINTESTINAL Hx Gastrointestinal Disorders: No - GENITOURINARY/GYNECOLOGICAL Hx Genitourinary Disorders: No - PSYCHIATRIC Hx Psychophysiologic Disorder: Yes (ANXIETY) - SURGICAL HISTORY Hx Surgeries: Yes Hx Herniorrhaphy: Yes - ANESTHESIA Hx Anesthesia: Yes Hx Anesthesia Reactions: No Meds Allergies/Adverse Reactions: Allergies Allergy/AdvReac Type Severity Reaction Status Date / Time No Known Allergies Allergy Verified 11/03/16 14:35 Physical Exam - Constitutional Appears: No Acute Distress, Confused - Head Exam Additional comments: R cheek large blackened ulcer - Eye Exam Eye Exam: PERRL - ENT Exam ENT Exam: Normal Exam - Neck Exam Neck exam: Positive for: Normal Inspection - Respiratory Exam Respiratory Exam: Clear to Auscultation Bilateral - Cardiovascular Exam Cardiovascular Exam: REGULAR RHYTHM Additional comments: Mid chest blackened ulcer with redness surrounding - GI/Abdominal Exam GI & Abdominal Exam: Normal Bowel Sounds, Soft - Extremities Exam Additional comments: Abrasion b/l knees and elbows. R arm swelling- edema. - Neurological Exam Additional comments: Confused, disoriented, Hemiparesis R side, Hands tremor. - Psychiatric Exam Additional comments: Calm - Skin Skin Exam: Abrasion, Erythema, Warm Results - Vital Signs Recent Vital Signs: Last Vital Signs Temp 98.1 F 08/20/17 13:50 Pulse 64 08/21/17 15:21 Resp 16 08/21/17 15:21 BP 141/75 08/21/17 15:21 Pulse Ox 97 08/21/17 15:21 reviewed Ishmael - Labs Result Diagrams: 08/21/17 05:30 08/21/17 05:30 Labs: Laboratory Results - last 24 hr 08/20/17 08/20/17 08/20/17 15:10 15:10 16:16 WBC RBC Hgb Hct MCV MCH MCHC RDW Plt Count MPV Neut % (Auto) Lymph % (Auto) [place] % (Auto) Eos % (Auto) Baso % (Auto) Neut # Lymph # [place] # Eos # Baso # Neutrophils % (Manual) 81 H Band Neutrophils % 2 Lymphocytes % (Manual) 9 L Monocytes % (Manual) 8 Platelet Estimate Normal Large Platelets Present Hypochromasia (manual) Slight Anisocytosis (manual) Slight Sodium Potassium Chloride 108 H Carbon Dioxide Anion Gap BUN Creatinine Est GFR ( Amer) Est GFR (Non-Af Amer) Random Glucose Calcium Total Bilirubin AST ALT Alkaline Phosphatase Total Protein Albumin Globulin Albumin/Globulin Ratio Triglycerides Cholesterol LDL Cholesterol Direct HDL Cholesterol Thyroxine (T4) TSH 3rd Generation Urine Color Yellow Urine Clarity Slighty-cloudy Urine pH 5.0 Ur Specific [place] 1.028 Urine Protein 100 Urine Glucose (UA) Neg Urine Ketones Trace Urine Blood Moderate Urine Nitrate Negative Urine Bilirubin Negative Urine Urobilinogen 4.0 Ur Leukocyte Esterase Neg Urine RBC (Auto) 12 H Urine Microscopic WBC 4 Ur Squamous Epith Cells < 1 08/21/17 08/21/17 05:30 05:30 WBC 8.3 RBC 3.48 L Hgb 10.5 L Hct 32.0 L MCV 92.0 MCH 30.3 MCHC 32.9 L RDW 13.5 Plt Count 191 MPV 7.7 Neut % (Auto) 77.5 H Lymph % (Auto) 13.3 L [place] % (Auto) 8.6 Eos % (Auto) 0.3 Baso % (Auto) 0.3 Neut # 6.4 Lymph # 1.1 [place] # 0.7 Eos # 0.0 Baso # 0.0 Neutrophils % (Manual) Band Neutrophils % Lymphocytes % (Manual) Monocytes % (Manual) Platelet Estimate Large Platelets Hypochromasia (manual) Anisocytosis (manual) Sodium 150 H Potassium 3.9 Chloride 114 H Carbon Dioxide 27 Anion Gap 12 BUN 23 H Creatinine 1.3 Est GFR ( Amer) > 60 Est GFR (Non-Af Amer) 53 Random Glucose 100 Calcium 9.2 Total Bilirubin 0.5 AST 145 H D ALT 80 H Alkaline Phosphatase 75 Total Protein 6.7 Albumin 3.3 L Globulin 3.4 Albumin/Globulin Ratio 1.0 Triglycerides 56 Cholesterol 132 LDL Cholesterol Direct 58 HDL Cholesterol 41 Thyroxine (T4) 5.07 L TSH 3rd Generation 6.44 H Urine Color Urine Clarity Urine pH Ur Specific [place] Urine Protein Urine Glucose (UA) Urine Ketones Urine Blood Urine Nitrate Urine Bilirubin Urine Urobilinogen Ur Leukocyte Esterase Urine RBC (Auto) Urine Microscopic WBC Ur Squamous Epith Cells reviewed J.P. - EKG Data EKG comments: reviewed J.P. - Imaging and Cardiology Chest x-ray Status: Report reviewed by me (J.P.) CT scan - head Status: Report reviewed by me (J.P.) Additional comment: Echo, Carotid/Artery U-S, Pelvis X-Ray, Maxillofacial CT. All Reviewed J.P. 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 PT,OT and Speech therapy eval. - Date & Time Date: 08/22/17 Time: 12:20
--- NOTE | 2017-08-21 19:42 | CP.PCM.CON ---
History of Present Illness - History of Present Illness History of Present Illness: CONSULT DICTATED NEW LEFT HEMIPARESIS RIGHT SUBCORTICAL DYSFUNCTION POSSIBLE NEUROLEPTIC INDUSED DYSTONIA WORK UP PER ORDR Past Patient History - Past Medical History & Family History Past Medical History?: Yes - Past Social History Smoking Status: Never Smoked - CARDIAC Hx Cardiac Disorders: Yes (HTN) Hx Hypertension: Yes - PULMONARY Hx Respiratory Disorders: No - NEUROLOGICAL Hx Neurological Disorder: Yes (PARKINSONS) Hx Dementia: Yes Hx Parkinson's Disease: Yes - HEENT Hx HEENT Problems: No - RENAL Hx Chronic Kidney Disease: No - ENDOCRINE/METABOLIC Hx Endocrine Disorders: Yes (DM) Hx Diabetes Mellitus Type 2: Yes - HEMATOLOGICAL/ONCOLOGICAL Hx Blood Disorders: No - INTEGUMENTARY Hx Dermatological Problems: Yes Other/Comment: right cheek blackened area. right chest wound scabs. abrasions knees/elbows - MUSCULOSKELETAL/RHEUMATOLOGICAL Hx Arthritis: Yes (back and knees) Hx Falls: Yes - GASTROINTESTINAL Hx Gastrointestinal Disorders: No - GENITOURINARY/GYNECOLOGICAL Hx Genitourinary Disorders: No Hx Incontinence: Yes - PSYCHIATRIC Hx Psychophysiologic Disorder: Yes (ANXIETY) Hx Anxiety: Yes Hx Substance Use: No - SURGICAL HISTORY Hx Surgeries: Yes Hx Herniorrhaphy: Yes - ANESTHESIA Hx Anesthesia: Yes Hx Anesthesia Reactions: No Meds Allergies/Adverse Reactions: Allergies Allergy/AdvReac Type Severity Reaction Status Date / Time No Known Allergies Allergy Verified 11/03/16 14:35 - Medications Medications: Current Medications Benztropine Mesylate (Cogentin) 1 mg PO TID [facility] Last Admin: 08/21/17 12:47 Dose: 1 mg Dextrose/Sodium Chloride (Dextrose 5%-0.9% Ns 500 Ml) 500 mls @ 100 mls/hr IV .Q5H [facility] Stop: 08/22/17 07:06 Last Admin: 08/21/17 15:13 Dose: 100 mls/hr Nortriptyline HCl (Pamelor) 25 mg PO Q12 [facility] Last Admin: 08/21/17 12:47 Dose: 25 mg Quetiapine Fumarate (Seroquel) 12.5 mg PO Q12 PRN PRN Reason: Agitation Results - Vital Signs Recent Vital Signs: Last Vital Signs Temp 98.2 F 08/21/17 19:27 Pulse 82 08/21/17 19:27 Resp 20 08/21/17 19:27 BP 127/75 08/21/17 19:27 Pulse Ox 98 08/21/17 19:27 - Labs Result Diagrams: 08/21/17 05:30 08/21/17 05:30 Labs: Laboratory Results - last 24 hr 08/20/17 08/21/17 08/21/17 15:10 05:30 05:30 WBC 8.3 RBC 3.48 L Hgb 10.5 L Hct 32.0 L MCV 92.0 MCH 30.3 MCHC 32.9 L RDW 13.5 Plt Count 191 MPV 7.7 Neut % (Auto) 77.5 H Lymph % (Auto) 13.3 L [place] % (Auto) 8.6 Eos % (Auto) 0.3 Baso % (Auto) 0.3 Neut # 6.4 Lymph # 1.1 [place] # 0.7 Eos # 0.0 Baso # 0.0 Sodium 150 H Potassium 3.9 Chloride 108 H 114 H Carbon Dioxide 27 Anion Gap 12 BUN 23 H Creatinine 1.3 Est GFR ( Amer) > 60 Est GFR (Non-Af Amer) 53 Random Glucose 100 Calcium 9.2 Total Bilirubin 0.5 AST 145 H D ALT 80 H Alkaline Phosphatase 75 Total Protein 6.7 Albumin 3.3 L Globulin 3.4 Albumin/Globulin Ratio 1.0 Triglycerides 56 Cholesterol 132 LDL Cholesterol Direct 58 HDL Cholesterol 41 Thyroxine (T4) 5.07 L TSH 3rd Generation 6.44 H Prolactin 08/21/17 08:00 WBC RBC Hgb Hct MCV MCH MCHC RDW Plt Count MPV Neut % (Auto) Lymph % (Auto) [place] % (Auto) Eos % (Auto) Baso % (Auto) Neut # Lymph # [place] # Eos # Baso # Sodium Potassium Chloride Carbon Dioxide Anion Gap BUN Creatinine Est GFR ( Amer) Est GFR (Non-Af Amer) Random Glucose Calcium Total Bilirubin AST ALT Alkaline Phosphatase Total Protein Albumin Globulin Albumin/Globulin Ratio Triglycerides Cholesterol LDL Cholesterol Direct HDL Cholesterol Thyroxine (T4) TSH 3rd Generation Prolactin 13.6
--- NOTE | 2017-08-22 03:29 | CON ---
DATE: 08/21/2017 REASON FOR THE CONSULTATION: Change in mental status, abnormal blood workup. CHIEF COMPLAINT: Patient was brought in by ambulance with a history of homemaker found him on the floor. From neurological point of view, I was called in to evaluate him for further management. HISTORY OF PRESENTING ILLNESS: Mr. Jamil Gonzalez is a 81-year-old right-handed male who is known to me as outpatient, being under treatment for his peripheral neuropathy and lumbosacral stenosis. Brought into [facility] (Former[facility]) with a history of patient was found on the floor by the homemaker. We do not know how long he was on the floor or any seizure activity is associated with the fall. No similar episodes in the past. At the scene, patient was found to have urine on the floor. From the fall, patient bruised his right side of the forehead and both knees and multiple bruises in the body. PAST MEDICAL HISTORY: Bipolar disorder, neuropathy, lumbosacral stenosis, depression. PERSONAL HISTORY: Denies smoking, alcohol use. HOME MEDICATIONS: Norvasc, Pamelor, Neurontin, Cogentin. REVIEW OF SYSTEMS: A 12-point system is being reviewed. From neuro, change in mental status and new fall with impaired consciousness. PHYSICAL EXAMINATION: VITAL SIGNS: Blood pressure 152/69, mean arterial pressure of 96, respiratory rate 16, temperature 97.5, pulse rate 68. NECK: Supple. No carotid bruit. HEART: Sounds regular. CHEST: Fair air entry. EXTREMITIES: No edema in legs. Multiple bruises over the knees and the right congregational region noted. NEUROLOGICAL EXAMINATION: Patient recognized me with no problem. Speech is intact. Only communicable in Portuguese. She was able move left side more better than the right side. Cranial Nerve Examination: Visual harp intact. Pupils reactive to light. Extraocular movement is decreased in all directions. No facial sensory deficit. Significant facial asymmetry, manifesting with the flattening of the right nasolabial fold. Hearing is normal. Tongue is midline. Good gag. He could able to swallow the food. Motor Examination: On outstretched hand with eyes closed, able to move his left hand, right hand is limited. Right leg has limited movement due to the weakness. Deep Tendon Reflexes: Biceps, brachialis, and triceps are trace; both knees are absent; both ankles are absent. Plantars are upgoing on his right side. Sensory Examination: He responded to pain symmetrically on both sides. Coordination: He could coordinate on his right side. WORKUP: CT of the head being reviewed. No acute pathology is noted. Mild atrophy and some scalp edema noted. Carotid Doppler: No significant stenosis noted. EKG, normal sinus rhythm. BLOOD WORKUP: WBC 8.3, hemoglobin 10.5, hematocrit 32.0, platelet 191. Sodium 150, potassium 3.9, chloride 114, bicarbonate 27. Cholesterol 132, LDL 58, HDL 41, TSH 6.44, prolactin 13.6. Urine shows 12 rbc's. CONCLUSION: Mr. Jamil Gonzalez has been presenting with fall. The examination showed right hemiparesis consistent with left subcortical dysfunction. This is probably the new event consistent with ischemic process versus space-occupying lesion. RECOMMENDATIONS: 1. Speech and swallow evaluation, feeding only with aspiration. 2. Hydration. Keep the mean arterial pressure around 90 to 100. 3. MRI of the brain should be done. 4. Physical therapy and DVT prophylaxis should be continued. Patient should also have an echocardiogram. Patient will be followed while he is in the hospital. Teddy Shirley MD MTDD
[2017-08-22 09:40] LABS: HEMATOCRIT 33.2 % (35.0-51.0); MEAN CELL VOLUME 92.1 fl (80.0-94.0); MEAN CORPUSCULAR HEMOGLOBIN 30.6 pg (27.0-31.0); MEAN CORPUSCULAR HGB CONC 33.2 g/dL (33.0-37.0); RED CELL DISTRIBUTION WIDTH 13.5 % (11.5-14.5); WHITE BLOOD COUNT 7.8 K/uL (4.8-10.8)
[2017-08-22 09:45] LABS: BLOOD UREA NITROGEN 22 mg/dl (9-20); CALCIUM 9.1 mg/dL (8.4-10.2); CARBON DIOXIDE 24 mmol/L (22-30); CHLORIDE 113 mmol/L (98-107); GFR AFRICAN-AMERICAN > 60; GLUCOSE,RANDOM 102 mg/dL (75-110); POTASSIUM 3.5 MMOL/L (3.6-5.0); SODIUM 145 mmol/l (132-148)
[2017-08-22] MEDS ORDERED: Potassium Chloride 20 mEq ER Tab PO ONE (13:55)
--- NOTE | 2017-08-22 14:16 | MRI ---
PROCEDURE: MRI BRAIN WITHOUT CONTRAST HISTORY: LEFT SUV CORTICAL STROKE COMPARISON: Head CT without contrast dated 08/01/2017 as well as 08/20/2017. TECHNIQUE: Multiplanar, multisequence MR images of the brain were obtained without intravenous contrast enhancement. FINDINGS: HEMORRHAGE: None DWI: No evidence of an acute or early subacute infarction. BRAIN PARENCHYMA: Diffuse cerebral atrophy chronic microangiopathy are reiterated as compared to prior CTs noted above. No mass-effect or other suspicious interval finding. VENTRICLES: Unremarkable. No hydrocephalus. CRANIUM: Unremarkable. ORBITS: Grossly unremarkable. PARANASAL SINUSES/MASTOIDS: Mucosal inflammatory changes are identified affecting the bilateral ethmoid and maxillary sinuses VASCULAR SYSTEM: Skull base flow voids intact. OTHER FINDINGS: None. IMPRESSION: Stable brain imaging with no acute intracranial findings identified this time including intracranial hemorrhage mass effect or brain infarction. Diminishing left frontal scalp hematoma further evident. Age-related neuro degenerative changes are reiterated as per above.
--- NOTE | 2017-08-22 15:26 | CP.PCM.PN ---
Subjective - Date & Time of Evaluation Date of Evaluation: 08/22/17 Time of Evaluation: 10:30 - Subjective Subjective: F/U Syncope/Trauma. Awake, confused, follows commands. Objective - Vital Signs/Intake and Output Vital Signs (last 24 hours): Temp Pulse Resp BP Pulse Ox 97.3 F L 74 20 159/72 H 95 08/22/17 13:00 08/22/17 13:00 08/22/17 13:00 08/22/17 13:00 08/22/17 13:00 Intake and Output: 08/22/17 08/22/17 06:59 18:59 Intake Total 1220 Output Total 200 Balance 1020 - Medications Medications: Current Medications Aspirin (Ecotrin) 81 mg PO DAILY [facility] Last Admin: 08/22/17 14:16 Dose: 81 mg Atorvastatin Calcium (Lipitor) 10 mg PO DAILY [facility] Last Admin: 08/22/17 14:11 Dose: 10 mg Benztropine Mesylate (Cogentin) 1 mg PO TID [facility] Last Admin: 08/22/17 14:12 Dose: 1 mg Enoxaparin Sodium (Lovenox) 40 mg SC DAILY [facility] PRN Reason: Protocol Nortriptyline HCl (Pamelor) 25 mg PO Q12 [facility] Last Admin: 08/22/17 09:04 Dose: 25 mg Quetiapine Fumarate (Seroquel) 12.5 mg PO Q12 PRN PRN Reason: Agitation - Labs Labs: 08/22/17 09:35 08/22/17 09:35 - Constitutional Appears: No Acute Distress - Head Exam Head Exam: NORMAL INSPECTION Additional comments: R cheek large blackened ulcer - Eye Exam Eye Exam: PERRL - ENT Exam ENT Exam: Normal Exam - Neck Exam Neck Exam: Normal Inspection - Respiratory Exam Respiratory Exam: Clear to Ausculation Bilateral - Cardiovascular Exam Cardiovascular Exam: REGULAR RHYTHM Additional comments: Mid chest blackened ulcer wit redness surrounding the area - GI/Abdominal Exam GI & Abdominal Exam: Soft, Normal Bowel Sounds - Extremities Exam Additional comments: Abrasion b/l knees and elbows, R arm swelling,edema. - Neurological Exam Neurological Exam: Alert Additional comments: Less confused, forgetful, follows commands, hands tremors, R hemiparesis. 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
--- NOTE | 2017-08-22 22:07 | PN ---
DATE: NEUROLOGICAL PROBLEM: Possible right hemiparesis secondary to left subcortical infarct, and the patient does have dyskinesis secondary to his preceding neuroleptic drugs. PHYSICAL EXAMINATION: VITAL SIGNS: Blood pressure 153/61, mean arterial pressure of 91, respiratory rate 16, and temperature afebrile. GENERAL: The patient is awake, alert. The patient is back to his baseline. He was able to move all four extremities; however, he still has some weakness on his right side compared with the left side. LABORATORY DATA: MRI of the brain reviewed, no acute pathology is noted except atrophy and periventricular ischemic changes which is old. ASSESSMENT AND PLAN: The patient is recommended to have physical therapy and keep fall precaution. The patient will be followed while he is in the hospital. Teddy Shirley MD
--- NOTE | 2017-08-23 00:48 | CP.PCM.PN ---
Subjective - Date & Time of Evaluation Date of Evaluation: 08/22/17 Time of Evaluation: 17:30 - Subjective Subjective: pt more awake and responsive today Objective - Vital Signs/Intake and Output Vital Signs (last 24 hours): Temp Pulse Resp BP Pulse Ox 98.4 F 69 18 148/79 98 08/23/17 00:29 08/23/17 00:29 08/23/17 00:29 08/23/17 00:29 08/23/17 00:29 - Medications Medications: Current Medications Acetaminophen (Tylenol 325mg Tab) 650 mg PO Q4 PRN PRN Reason: Pain, moderate (4-7) Last Admin: 08/22/17 15:57 Dose: 650 mg Aspirin (Ecotrin) 81 mg PO DAILY [facility] Last Admin: 08/22/17 14:16 Dose: 81 mg Atorvastatin Calcium (Lipitor) 10 mg PO DAILY [facility] Last Admin: 08/22/17 14:11 Dose: 10 mg Benztropine Mesylate (Cogentin) 1 mg PO TID [facility] Last Admin: 08/22/17 16:01 Dose: 1 mg Enoxaparin Sodium (Lovenox) 40 mg SC DAILY [facility] PRN Reason: Protocol Nortriptyline HCl (Pamelor) 25 mg PO Q12 [facility] Last Admin: 08/22/17 21:30 Dose: 25 mg Quetiapine Fumarate (Seroquel) 12.5 mg PO Q12 PRN PRN Reason: Agitation - Labs Labs: 08/22/17 09:35 08/22/17 09:35 Assessment and Plan (1) Dehydration Status: Acute (2) Head injury Status: Acute (3) Parkinsonian features Status: Chronic (4) Rhabdomyolysis Status: Acute (5) Change in mental status Status: Acute (6) Leg pain Status: Acute (7) Renal insufficiency Status: Acute
--- NOTE | 2017-08-23 04:57 | EEG ---
DATE: 08/21/2017 This is a 16-channel electroencephalogram of awake and drowsy adult. During the study, photic stimulation was performed. Hyperventilation was not performed. The resting electroencephalogram consisted of a 20-30 microvolt diffuse 4-5 Hz delta mixed with theta activity seen in parietal and occipital leads. Intermittent movement artifact contaminated the background rhythm. The photic stimulation did not evoke any response noted at 2-20 Hz. IMPRESSION: This is an abnormal electroencephalogram because of persistent slowing throughout the record suggestive of bilateral cerebral dysfunction. This is probably secondary to metabolic, vascular, degenerative process. Please correlate the findings with neurological and radiological studies. Teddy Shirley MD
[2017-08-23] MEDS ORDERED: Sodium Chloride 0.9% 1,000 ML IV SCH (07:45)
[2017-08-23 08:10] VITALS: RESP 20
[2017-08-23 08:54] LABS: BLOOD UREA NITROGEN 16 mg/dl (9-20); CALCIUM 8.9 mg/dL (8.4-10.2); CARBON DIOXIDE 28 mmol/L (22-30); CHLORIDE 109 mmol/L (98-107); GFR AFRICAN-AMERICAN > 60; GLUCOSE,RANDOM 100 mg/dL (75-110); POTASSIUM 3.6 MMOL/L (3.6-5.0); SODIUM 143 mmol/l (132-148)
[2017-08-23] MEDS ORDERED: Enoxaparin 40 mg Syringe SC SCH (09:00)
--- NOTE | 2017-08-23 13:04 | CP.PCM.PN ---
Subjective - Date & Time of Evaluation Date of Evaluation: 08/23/17 Time of Evaluation: 10:40 - Subjective Subjective: F/U Syncope/ Trauma. Pt awake, no A/D, confused. Objective - Vital Signs/Intake and Output Vital Signs (last 24 hours): Temp Pulse Resp BP Pulse Ox 97.6 F 74 20 130/66 95 08/23/17 11:56 08/23/17 11:56 08/23/17 11:56 08/23/17 11:56 08/23/17 11:56 - Medications Medications: Current Medications Acetaminophen (Tylenol 325mg Tab) 650 mg PO Q4 PRN PRN Reason: Pain, moderate (4-7) Last Admin: 08/22/17 15:57 Dose: 650 mg Aspirin (Ecotrin) 81 mg PO DAILY [facility] Last Admin: 08/23/17 08:52 Dose: 81 mg Atorvastatin Calcium (Lipitor) 10 mg PO DAILY [facility] Last Admin: 08/23/17 08:53 Dose: 10 mg Benztropine Mesylate (Cogentin) 1 mg PO TID [facility] Last Admin: 08/23/17 12:40 Dose: 1 mg Enoxaparin Sodium (Lovenox) 40 mg SC DAILY [facility] PRN Reason: Protocol Last Admin: 08/23/17 08:52 Dose: 40 mg Sodium Chloride (Sodium Chloride 0.9%) 1,000 mls @ 75 mls/hr IV .[id number] [facility] Stop: 08/24/17 07:43 Last Admin: 08/23/17 08:53 Dose: 75 mls/hr Nortriptyline HCl (Pamelor) 25 mg PO Q12 [facility] Last Admin: 08/23/17 08:52 Dose: 25 mg Quetiapine Fumarate (Seroquel) 12.5 mg PO Q12 PRN PRN Reason: Agitation - Labs Labs: 08/22/17 09:35 08/23/17 08:30 - Constitutional Appears: No Acute Distress - Head Exam Head Exam: NORMAL INSPECTION Additional comments: R Cheek blackened ulcer - Eye Exam Eye Exam: PERRL - ENT Exam ENT Exam: Normal Exam - Neck Exam Neck Exam: Normal Inspection - Respiratory Exam Respiratory Exam: Clear to Ausculation Bilateral - Cardiovascular Exam Cardiovascular Exam: REGULAR RHYTHM Additional comments: Mid chest blackened ulcer - GI/Abdominal Exam GI & Abdominal Exam: Soft, Normal Bowel Sounds - Extremities Exam Additional comments: Abrasion b/l knees and elbows, R arm swelling, edema. 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
[2017-08-23 15:56] VITALS: BP 152/73; PULSE 84; TEMP 98.1; O2SAT 96
== END 2017-08-23 18:38 | DRG 641 ==
LOC: H.ER 13:49 → H.ERHOLD 16:58 → H.TEL 08-21 16:49
PROVIDERS: ADMIT Internal Medicine Pulmonary Disease; ATTEND Internal Medicine Pulmonary Disease
DX: E86.0 Dehydration (principal); M62.82 Rhabdomyolysis; E11.21 Type 2 diabetes mellitus with diabetic nephropathy; E11.42 Type 2 diabetes mellitus with diabetic polyneuropathy; G20 Parkinson's disease; G81.91 Hemiplegia, unspecified affecting right dominant side; F02.80 Dementia in other diseases classified elsewhere, unspecified severity, without behavioral disturbance, psychotic disturbance, mood disturbance, and anxiety; S00.83XA Contusion of other part of head, initial encounter; W19.XXXA Unspecified fall, initial encounter; F31.9 Bipolar disorder, unspecified; M48.07 Spinal stenosis, lumbosacral region; I10 Essential (primary) hypertension; M47.898 Other spondylosis, sacral and sacrococcygeal region; N28.9 Disorder of kidney and ureter, unspecified; Z79.899 Other long term (current) drug therapy; Y92.039 Unspecified place in apartment as the place of occurrence of the external cause

== ENCOUNTER 2017-09-09 12:46 | Emergency (ER) | payer MEDICARE ==
[2017-09-09 12:47] VITALS: BMI 22.6
[2017-09-09 12:53] VITALS: BP 121/71; PULSE 93; RESP 18; TEMP 98
--- NOTE | 2017-09-09 13:13 | ED PDOC ---
HPI: General Adult Time Seen by Provider: 09/09/17 13:03 Chief Complaint (Nursing): Medical Clearance History Per: Family (Discharged from [facility] this AM and not allowed to enter into his home in [place]. No c/o) Past Medical History Vital Signs: Last Vital Signs Temp 98 F 09/09/17 12:50 Pulse 93 H 09/09/17 12:50 Resp 18 09/09/17 12:50 BP 121/71 09/09/17 12:50 Pulse Ox - Medical History PMH: Anxiety, Arthritis, Dementia, Diabetes, HTN, Parkinson's Disease Denies: HIV, Chronic Kidney Disease - Surgical History Surgical History: Hernia Repair - Family History Family History: States: Unknown Family Hx - Immunization History Hx Tetanus Toxoid Vaccination: No Hx Influenza Vaccination: No Hx Pneumococcal Vaccination: No - Home Medications Home Medications: Ambulatory Orders Medication Instructions Recorded Benztropine [Cogentin] 1 mg PO TID #90 tab 11/06/16 Nortriptyline [Pamelor] 25 mg PO Q12 08/01/17 amLODIPine [Norvasc] 5 mg PO DAILY 08/01/17 Acetaminophen [Tylenol 325mg tab] 650 mg PO Q4 PRN #0 tab 08/23/17 Aspirin [Ecotrin] 81 mg PO DAILY [facility] 08/23/17 Atorvastatin [Lipitor] 20 mg PO DAILY tab 08/23/17 Enoxaparin [Lovenox] 40 mg SC DAILY syr 08/23/17 QUEtiapine [Seroquel] 12.5 mg PO Q12 PRN tab 08/23/17 - Allergies Allergies/Adverse Reactions: Allergies Allergy/AdvReac Type Severity Reaction Status Date / Time No Known Allergies Allergy Verified 11/03/16 14:35 Review of Systems Review Of Systems: ROS cannot be obtained secondary to pt's inabilty to answer questions. Physical Exam - Physical Exam Head Exam: Negative for: NORMOCEPHALIC (2 cm ulcer right zygomatic area. No erythema or drainage) Cardiovascular/Chest: Positive for: Regular Rate, Rhythm Respiratory: Positive for: CNT, Normal Breath Sounds Neurologic/Psych: Positive for: Alert. Negative for: Oriented (x1) Disposition - Clinical Impression Clinical Impression: Dementia, Parkinson disease - Patient ED Disposition Is Patient to be Admitted: No - Disposition Referrals: Mejia De Jesus MD [Staff Provider] - Disposition: Routine/Home Disposition Time: 14:27 Condition: FAIR Instructions: Parkinson Disease (ED) Forms: [facility] (French)
== END 2017-09-09 18:17 | disposition home or self-care (01) ==
LOC: H.ER 12:46
DX: F02.80 Dementia in other diseases classified elsewhere, unspecified severity, without behavioral disturbance, psychotic disturbance, mood disturbance, and anxiety (principal)

== ENCOUNTER 2017-09-09 16:22 | Inpatient (IN) | payer MEDICARE ==
[2017-09-09 16:23] VITALS: BMI 22.6
[2017-09-09 17:20] LABS: BASO % 0.3 % (0.0-2.0); EOS # 0.2 K/uL (0.0-0.7); EOS % 2.6 % (0.0-4.0); HEMATOCRIT 33.6 % (35.0-51.0); LYMPH # 1.8 K/uL (1.0-4.3); LYMPH % 29.2 % (20.0-40.0); MEAN CELL VOLUME 90.5 fl (80.0-94.0); MEAN CORPUSCULAR HEMOGLOBIN 29.7 pg (27.0-31.0); MEAN CORPUSCULAR HGB CONC 32.9 g/dL (33.0-37.0); MEAN PLATELET VOLUME 6.9 fl (7.2-11.7); MONO # 0.6 K/uL (0.0-0.8); MONO % 9.3 % (0.0-10.0); NEUT # 3.6 K/uL (1.8-7.0); NEUT % 58.6 % (50.0-75.0); RED CELL DISTRIBUTION WIDTH 13.3 % (11.5-14.5); WHITE BLOOD COUNT 6.1 K/uL (4.8-10.8)
[2017-09-09 17:31] LABS: BILIRUBIN,TOTAL 0.3 mg/dl (0.2-1.3); CALCIUM 9.9 mg/dL (8.4-10.2); POTASSIUM 4.1 MMOL/L (3.6-5.0); TOTAL PROTEIN 7.6 G/DL (6.3-8.2)
--- NOTE | 2017-09-09 17:42 | ED PDOC ---
HPI: General Adult Time Seen by Provider: 09/09/17 16:41 Chief Complaint (Nursing): Medical Clearance History Per: Other (Brought by EMS pt seen earlier unable to get into his apt. On return to home found out he had been evicted and became agitated and brought back to hospital.) Past Medical History Vital Signs: Last Vital Signs Temp 98 F 09/09/17 16:24 Pulse 93 H 09/09/17 16:24 Resp 18 09/09/17 16:24 BP Pulse Ox 99 09/09/17 16:24 - Medical History PMH: Anxiety, Arthritis, Dementia, Diabetes, HTN, Parkinson's Disease Denies: HIV, Chronic Kidney Disease - Surgical History Surgical History: Hernia Repair - Family History Family History: States: Unknown Family Hx - Immunization History Hx Tetanus Toxoid Vaccination: No Hx Influenza Vaccination: No Hx Pneumococcal Vaccination: No - Home Medications Home Medications: Ambulatory Orders Medication Instructions Recorded Benztropine [Cogentin] 1 mg PO TID #90 tab 11/06/16 Nortriptyline [Pamelor] 25 mg PO Q12 08/01/17 amLODIPine [Norvasc] 5 mg PO DAILY 08/01/17 Aspirin [Ecotrin] 81 mg PO DAILY [facility] 08/23/17 Enoxaparin [Lovenox] 40 mg SC DAILY [facility] 08/23/17 Atorvastatin [Lipitor] 20 mg PO HS 09/09/17 Bacitracin OINT [Bacitracin OINT] 1 appl TOP BID 09/09/17 QUEtiapine [Seroquel] 12.5 mg PO Q12 PRN 09/09/17 - Allergies Allergies/Adverse Reactions: Allergies Allergy/AdvReac Type Severity Reaction Status Date / Time No Known Allergies Allergy Verified 11/03/16 14:35 Review of Systems ROS Statement: Except As Marked, All Systems Reviewed And Found Negative Psych: Positive for: Anxiety Physical Exam - Reviewed Nursing Documentation Reviewed: Yes Vital Signs Reviewed: Yes - Physical Exam Appears: Positive for: Non-toxic, No Acute Distress Head Exam: Positive for: ATRAUMATIC, NORMAL INSPECTION. Negative for: NORMOCEPHALIC (2 cm ulcer right zygomatic area. No erythema or drainage) Skin: Positive for: Normal Color, Warm, DRY Eye Exam: Positive for: EOMI, Normal appearance, PERRL ENT: Positive for: Normal ENT Inspection Neck: Positive for: Normal, Painless ROM Cardiovascular/Chest: Positive for: Regular Rate, Rhythm Respiratory: Positive for: CNT, Normal Breath Sounds Gastrointestinal/Abdominal: Positive for: Normal Exam, Bowel Sounds, Soft Back: Positive for: Normal Inspection Extremity: Positive for: Normal ROM Neurologic/Psych: Positive for: Alert - Laboratory Results Result Diagrams: 09/09/17 17:11 09/09/17 17:11 - ECG ECG Rhythm: Positive for: Sinus Rhythm, Nonspecific Changes O2 Sat by Pulse Oximetry: 99 Disposition - Clinical Impression Clinical Impression: Parkinson disease, Dementia, Abnormal EKG - Patient ED Disposition Is Patient to be Admitted: Yes - Disposition Disposition Time: 17:42 Condition: FAIR - Pt Status Changed To: Hospital Disposition Of: Observation - POA Present On Arrival: None
--- NOTE | 2017-09-09 18:29 | RAD ---
HISTORY: Cough. COMPARISON: 08/20/2017. FINDINGS: LUNGS: No active pulmonary disease. PLEURA: No significant pleural effusion identified, no pneumothorax apparent. CARDIOVASCULAR: Normal. OSSEOUS STRUCTURES: No significant abnormalities. VISUALIZED UPPER ABDOMEN: Normal. OTHER FINDINGS: None. IMPRESSION: No active disease. No significant interval change compared to the prior examination(s).
[2017-09-10] MEDS ORDERED: Influenza Vaccine 18yr & older 0.5 ML/45 MCG SYR IM ONE (07:27)
[2017-09-10 10:12] LABS: HEMATOCRIT 37.1 % (35.0-51.0); MEAN CELL VOLUME 90.1 fl (80.0-94.0); MEAN CORPUSCULAR HEMOGLOBIN 29.8 pg (27.0-31.0); RED CELL DISTRIBUTION WIDTH 13.4 % (11.5-14.5)
--- NOTE | 2017-09-10 10:45 | CARD ---
APPROVED REPORT EKG Measurement Heart [id number] <Conclusion> Normal sinus rhythm Possible septal infarct, age undetermined Abnormal ECG
--- NOTE | 2017-09-10 11:00 | CARD ---
APPROVED REPORT EKG Measurement Heart [id number] <Conclusion> Normal sinus rhythm Poor R wave progression V1 to V3 Prolonged QT Abnormal ECG
[2017-09-10] MEDS ORDERED: Sodium Chloride 0.9% 1,000 ML IV SCH (11:15)
[2017-09-10 13:12] LABS: ALKALINE PHOSPHATASE 92 U/L (38-126); ALT/SGPT 51 U/L (21-72); AST/SGOT 50 U/L (17-59); BILIRUBIN,TOTAL 0.5 mg/dl (0.2-1.3); BLOOD UREA NITROGEN 23 mg/dl (9-20); CALCIUM 10.3 mg/dL (8.4-10.2); CARBON DIOXIDE 24 mmol/L (22-30); CHLORIDE 106 mmol/L (98-107); GFR AFRICAN-AMERICAN > 60; GLUCOSE,RANDOM 98 mg/dL (75-110); POTASSIUM 4.7 MMOL/L (3.6-5.0); SODIUM 142 mmol/l (132-148); TOTAL PROTEIN 8.3 G/DL (6.3-8.2)
--- NOTE | 2017-09-10 16:45 | CP.PCM.HP ---
History of Present Illness - History of Present Illness History of Present Illness: 81 y/o M, brought to [facility], [place] by EMS to be evaluated for severe agitation with no relief of symptoms after he found that was evicted from his apartment on [address]. Worsening symptoms: Hx Dementia. Aggravated factor: Unable to speak /understand. also Hx of being admitted to [facility] for Syncope/trauma on 08/21/17, there after, on 08/23/17, Pt was sent to [facility] for DELLA, he was discharged from these facility yesterday 08/10/17 and when he get home in [facility], found to be unable to get into his apartment, it was locked up. there after, Pt returned to hospital by EMS for evaluation. No: Fever, chills, n/v/d, abdominal pain, SOB, cough, CP, syncope. EKG Showed: Normal sinus rhythm, poor R wave progression V1, V3, prolonged QT. CXR: No active disease. Present on Admission - Present on Admission Any Indicators Present on Admission: No Review of Systems - Review of Systems Systems not reviewed;Unavailable: Acuity of Condition, Dementia Past Patient History - Past Medical History & Family History Past Medical History?: Yes Pertinent Family History: Unknown - Past Social History Smoking Status: Never Smoked Alcohol: None Drugs: Denies Home Situation {Lives}: Alone - CARDIAC Hx Cardiac Disorders: Yes Hx Hypertension: Yes - PULMONARY Hx Respiratory Disorders: No - NEUROLOGICAL Hx Neurological Disorder: Yes Hx Dementia: Yes Hx Parkinson's Disease: Yes - HEENT Hx HEENT Problems: No - RENAL Hx Chronic Kidney Disease: No - ENDOCRINE/METABOLIC Hx Endocrine Disorders: Yes (DM) Hx Diabetes Mellitus Type 2: Yes - HEMATOLOGICAL/ONCOLOGICAL Hx Blood Disorders: No Hx Human Immunodeficiency Virus (HIV): No - INTEGUMENTARY Hx Dermatological Problems: No - MUSCULOSKELETAL/RHEUMATOLOGICAL Hx Musculoskeletal Disorders: Yes Hx Arthritis: Yes Hx Back Pain: Yes Hx Falls: Yes - GASTROINTESTINAL Hx Gastrointestinal Disorders: No - GENITOURINARY/GYNECOLOGICAL Hx Genitourinary Disorders: No - PSYCHIATRIC Hx Psychophysiologic Disorder: Yes Hx Anxiety: Yes Hx Substance Use: No - SURGICAL HISTORY Hx Surgeries: Yes Hx Herniorrhaphy: Yes - ANESTHESIA Hx Anesthesia: Yes Hx Anesthesia Reactions: No Meds Allergies/Adverse Reactions: Allergies Allergy/AdvReac Type Severity Reaction Status Date / Time No Known Allergies Allergy Verified 11/03/16 14:35 Physical Exam - Constitutional Appears: Agitated, Confused - Head Exam Head Exam: NORMAL INSPECTION Additional comments: Dry scab to R cheek - Eye Exam Eye Exam: PERRL - ENT Exam ENT Exam: Normal Exam - Neck Exam Neck exam: Positive for: Normal Inspection - Respiratory Exam Respiratory Exam: Clear to Auscultation Bilateral - Cardiovascular Exam Cardiovascular Exam: REGULAR RHYTHM Additional comments: Dry scab to middle chest - GI/Abdominal Exam GI & Abdominal Exam: Normal Bowel Sounds, Soft - Extremities Exam Additional comments: Small multiple healed wounds on LLE. - Back Exam Back exam: NORMAL INSPECTION - Neurological Exam Additional comments: Confused, disoriented , U/E L/E continuos movements - Psychiatric Exam Psychiatric exam: Agitated Results - Vital Signs Recent Vital Signs: Last Vital Signs Temp 98.6 F 09/10/17 15:50 Pulse 106 H 09/10/17 15:50 Resp 20 09/10/17 15:50 BP 98/64 L 09/10/17 15:50 Pulse Ox 96 09/10/17 15:50 reviewed Ishmael - Labs Result Diagrams: 09/10/17 09:45 09/11/17 05:40 Labs: Laboratory Results - last 24 hr 09/09/17 09/09/17 09/09/17 17:11 17:11 19:30 WBC 6.1 RBC 3.71 L Hgb 11.0 L Hct 33.6 L MCV 90.5 MCH 29.7 MCHC 32.9 L RDW 13.3 Plt Count 273 MPV 6.9 L Neut % (Auto) 58.6 Lymph % (Auto) 29.2 [place] % (Auto) 9.3 Eos % (Auto) 2.6 Baso % (Auto) 0.3 Neut # 3.6 Lymph # 1.8 [place] # 0.6 Eos # 0.2 Baso # 0.0 Sodium 141 Potassium 4.1 Chloride 104 Carbon Dioxide 28 Anion Gap 13 BUN 24 H Creatinine 1.8 H Est GFR ( Amer) 44 Est GFR (Non-Af Amer) 37 POC Glucose (mg/dL) Random Glucose 107 Calcium 9.9 Total Bilirubin 0.3 AST 31 ALT 56 Alkaline Phosphatase 88 Troponin I 0.0150 Total Protein 7.6 Albumin 3.8 Globulin 3.8 Albumin/Globulin Ratio 1.0 09/10/17 09/10/17 09/10/17 01:22 06:54 09:45 WBC 7.0 RBC 4.11 L Hgb 12.2 Hct 37.1 MCV 90.1 MCH 29.8 MCHC 33.0 RDW 13.4 Plt Count 300 MPV Neut % (Auto) Lymph % (Auto) [place] % (Auto) Eos % (Auto) Baso % (Auto) Neut # Lymph # [place] # Eos # Baso # Sodium Potassium Chloride Carbon Dioxide Anion Gap BUN Creatinine Est GFR ( Amer) Est GFR (Non-Af Amer) POC Glucose (mg/dL) 116 H Random Glucose Calcium Total Bilirubin AST ALT Alkaline Phosphatase Troponin I < 0.0120 Total Protein Albumin Globulin Albumin/Globulin Ratio 09/10/17 09/10/17 09/10/17 09:45 11:33 12:15 WBC RBC Hgb Hct MCV MCH MCHC RDW Plt Count MPV Neut % (Auto) Lymph % (Auto) [place] % (Auto) Eos % (Auto) Baso % (Auto) Neut # Lymph # [place] # Eos # Baso # Sodium 142 Potassium 4.7 Chloride 106 Carbon Dioxide 24 Anion Gap 17 BUN 23 H Creatinine 1.3 Est GFR ( Amer) > 60 Est GFR (Non-Af Amer) 53 POC Glucose (mg/dL) 99 Random Glucose 98 Calcium 10.3 H Total Bilirubin 0.5 AST 50 ALT 51 Alkaline Phosphatase 92 Troponin I < 0.0120 Total Protein 8.3 H Albumin 4.2 Globulin 4.2 H Albumin/Globulin Ratio 1.0 09/10/17 16:06 WBC RBC Hgb Hct MCV MCH MCHC RDW Plt Count MPV Neut % (Auto) Lymph % (Auto) [place] % (Auto) Eos % (Auto) Baso % (Auto) Neut # Lymph # [place] # Eos # Baso # Sodium Potassium Chloride Carbon Dioxide Anion Gap BUN Creatinine Est GFR ( Amer) Est GFR (Non-Af Amer) POC Glucose (mg/dL) 114 H Random Glucose Calcium Total Bilirubin AST ALT Alkaline Phosphatase Troponin I Total Protein Albumin Globulin Albumin/Globulin Ratio reviewed J.P. - EKG Data EKG comments: reviewed J.P. 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 - Date & Time Date: 09/10/17 Time: 13:00
--- NOTE | 2017-09-10 20:23 | CP.PCM.CON ---
History of Present Illness - History of Present Illness History of Present Illness: Jamil Marks is a 81-year-old male who was brought in by EMS today as he was found to be agitated and poorly responsive. Patient on presentation to the emergency room was noted to have an EKG with questionable changes for which I was called there was some questionable history of prior chest pains. Past medical history as stated above significant for anxiety arthritis dementia diabetes hypertension Parkinson's disease surgical history significant for hernia repair family history noncontributory Home medications include Cogentin 1 mg p.o. 3 times daily nortriptyline 25 mg p.o. every 12 hours Norvasc 5 mg daily aspirin 81 mg daily Lovenox 40 mg subcu daily Lipitor 20 mg p.o. nightly bacitracin and Seroquel. Allergies no known drug allergies. Review of systems positive for anxiety as stated above in the HPI other systems reviewed were negative. Initial labs on presentation show consistent with dehydration and acute renal insufficiency and abnormal EKG. Review of Systems - Review of Systems Systems not reviewed;Unavailable: Acuity of Condition - Constitutional Constitutional: As Per HPI - EENT Eyes: As Per HPI Ears: As Per HPI Nose/Mouth/Throat: As Per HPI - Cardiovascular Cardiovascular: As Per HPI - Respiratory Respiratory: As Per HPI - Gastrointestinal Gastrointestinal: As Per HPI - Genitourinary Genitourinary: As Per HPI - Reproductive: Male Reproductive:Male: As Per HPI - Musculoskeletal Musculoskeletal: As Per HPI - Integumentary Integumentary: As Per HPI - Neurological Neurological: As Per HPI - Psychiatric Psychiatric: As Per HPI - Endocrine Endocrine: As Per HPI - Hematologic/Lymphatic Hematologic: As Per HPI Past Patient History - Past Medical History & Family History Past Medical History?: Yes - Past Social History Smoking Status: Never Smoked Alcohol: None Drugs: Denies Home Situation {Lives}: Alone - CARDIAC Hx Cardiac Disorders: Yes Hx Hypertension: Yes - PULMONARY Hx Respiratory Disorders: No - NEUROLOGICAL Hx Neurological Disorder: Yes Hx Dementia: Yes Hx Parkinson's Disease: Yes - HEENT Hx HEENT Problems: No - RENAL Hx Chronic Kidney Disease: No - ENDOCRINE/METABOLIC Hx Endocrine Disorders: Yes (DM) Hx Diabetes Mellitus Type 2: Yes - HEMATOLOGICAL/ONCOLOGICAL Hx Blood Disorders: No Hx Human Immunodeficiency Virus (HIV): No - INTEGUMENTARY Hx Dermatological Problems: No - MUSCULOSKELETAL/RHEUMATOLOGICAL Hx Musculoskeletal Disorders: Yes Hx Arthritis: Yes Hx Back Pain: Yes Hx Falls: Yes - GASTROINTESTINAL Hx Gastrointestinal Disorders: No - GENITOURINARY/GYNECOLOGICAL Hx Genitourinary Disorders: No - PSYCHIATRIC Hx Psychophysiologic Disorder: Yes Hx Anxiety: Yes Hx Substance Use: No - SURGICAL HISTORY Hx Surgeries: Yes Hx Herniorrhaphy: Yes - ANESTHESIA Hx Anesthesia: Yes Hx Anesthesia Reactions: No Meds Allergies/Adverse Reactions: Allergies Allergy/AdvReac Type Severity Reaction Status Date / Time No Known Allergies Allergy Verified 11/03/16 14:35 - Medications Medications: Current Medications Amlodipine Besylate (Norvasc) 5 mg PO DAILY [facility] Last Admin: 09/10/17 10:09 Dose: 5 mg Aspirin (Ecotrin) 81 mg PO DAILY [facility] Last Admin: 09/10/17 10:08 Dose: 81 mg Atorvastatin Calcium (Lipitor) 20 mg PO [facility] Benztropine Mesylate (Cogentin) 1 mg PO TID [facility] Last Admin: 09/10/17 10:09 Dose: 1 mg Enoxaparin Sodium (Lovenox) 40 mg SC DAILY [facility] PRN Reason: Protocol Nortriptyline HCl (Pamelor) 25 mg PO Q12 [facility] Last Admin: 09/10/17 10:08 Dose: 25 mg Quetiapine Fumarate (Seroquel) 25 mg PO Q12 PRN PRN Reason: Psychosis Physical Exam - Constitutional Appears: Well - Head Exam Head Exam: ATRAUMATIC, NORMAL INSPECTION, NORMOCEPHALIC - Eye Exam Eye Exam: EOMI, Normal appearance, PERRL Pupil Exam: NORMAL ACCOMODATION, PERRL - ENT Exam ENT Exam: Mucous Membranes Moist, Normal Exam - Neck Exam Neck exam: Positive for: Normal Inspection - Respiratory Exam Respiratory Exam: Clear to Auscultation Bilateral, NORMAL BREATHING PATTERN - Cardiovascular Exam Cardiovascular Exam: REGULAR RHYTHM, RRR, +S1, +S2, Systolic Murmur - GI/Abdominal Exam GI & Abdominal Exam: Normal Bowel Sounds, Soft. absent: Tenderness - Extremities Exam Extremities exam: Positive for: normal inspection - Back Exam Back exam: NORMAL INSPECTION - Neurological Exam Neurological exam: Alert, CN II-XII Intact, Normal Gait, Oriented x3, Reflexes Normal - Psychiatric Exam Psychiatric exam: Normal Affect, Normal Mood - Skin Skin Exam: Dry, Intact, Normal Color, Warm Results - Vital Signs Recent Vital Signs: Last Vital Signs Temp 98.1 F 09/10/17 19:29 Pulse 84 09/10/17 19:29 Resp 20 09/10/17 19:29 BP 142/68 09/10/17 19:29 Pulse Ox 96 09/10/17 19:29 - Labs Result Diagrams: 09/10/17 09:45 09/10/17 12:15 Labs: Laboratory Results - last 24 hr 09/10/17 09/10/17 09/10/17 01:22 06:54 09:45 WBC 7.0 RBC 4.11 L Hgb 12.2 Hct 37.1 MCV 90.1 MCH 29.8 MCHC 33.0 RDW 13.4 Plt Count 300 Sodium Potassium Chloride Carbon Dioxide Anion Gap BUN Creatinine Est GFR ( Amer) Est GFR (Non-Af Amer) POC Glucose (mg/dL) 116 H Random Glucose Calcium Total Bilirubin AST ALT Alkaline Phosphatase Troponin I < 0.0120 Total Protein Albumin Globulin Albumin/Globulin Ratio 09/10/17 09/10/17 09/10/17 09:45 11:33 12:15 WBC RBC Hgb Hct MCV MCH MCHC RDW Plt Count Sodium 142 Potassium 4.7 Chloride 106 Carbon Dioxide 24 Anion Gap 17 BUN 23 H Creatinine 1.3 Est GFR ( Amer) > 60 Est GFR (Non-Af Amer) 53 POC Glucose (mg/dL) 99 Random Glucose 98 Calcium 10.3 H Total Bilirubin 0.5 AST 50 ALT 51 Alkaline Phosphatase 92 Troponin I < 0.0120 Total Protein 8.3 H Albumin 4.2 Globulin 4.2 H Albumin/Globulin Ratio 1.0 09/10/17 09/10/17 16:06 16:40 WBC RBC Hgb Hct MCV MCH MCHC RDW Plt Count Sodium Potassium Chloride Carbon Dioxide Anion Gap BUN Creatinine Est GFR ( Amer) Est GFR (Non-Af Amer) POC Glucose (mg/dL) 114 H Random Glucose Calcium Total Bilirubin AST ALT Alkaline Phosphatase Troponin I 0.0120 Total Protein Albumin Globulin Albumin/Globulin Ratio Assessment & Plan (1) Abnormal EKG Status: Acute Priority: High (2) Parkinson disease Status: Acute (3) Dementia Status: Chronic Priority: High (4) Altered mental status Status: Acute Priority: High (5) Leg pain Status: Acute (6) Renal insufficiency Status: Acute Priority: High (7) HTN (hypertension) Status: Chronic Priority: Medium
--- NOTE | 2017-09-10 23:18 | CP.PCM.CON ---
History of Present Illness - History of Present Illness History of Present Illness: Jamil Gonzalez is a 81-year-old male who was brought in by EMS today as he was found to be agitated and poorly responsive. (Brought by EMS pt seen earlier unable to get into his apt. On return to home found out he had been evicted and became agitated and brought back to hospital.) Patient on presentation to the emergency room was noted to have an EKG changes there was some questionable history of prior chest pains with no relief of symptoms after he found that was evicted from his apartment on [address]. Past medical history as stated above significant for anxiety arthritis dementia diabetes hypertension Parkinson's disease surgical history significant for hernia repair family history noncontributory Home medications include Cogentin 1 mg p.o. 3 times daily Nortriptyline 25 mg p.o. every 12 hours Norvasc 5 mg daily aspirin 81 mg daily Lovenox 40 mg subcutaneous daily Lipitor 20 mg p.o. nightly bacitracin and Seroquel. Allergies no known drug allergies. Review of systems positive for anxiety as stated above in the HPI other systems reviewed were negative. Initial labs on presentation show consistent with dehydration and acute renal insufficiency and abnormal EKG. Worsening symptoms: Hx Dementia. Aggravated factor: Unable to speak /understand. also Hx of being admitted to [facility] for Syncope/trauma on 08/21/17, there after, on 08/23/17, Pt was sent to [facility] for DELLA, he was discharged from these facility yesterday 08/10/17 and when he get home in [facility], found to be unable to get into his apartment, it was locked up. there after, Pt returned to hospital by EMS for evaluation. No: Fever, chills, n/v/d, abdominal pain, SOB, cough, CP, syncope. EKG Showed: Normal sinus rhythm, poor R wave progression V1, V3, prolonged QT. CXR: No active disease. Review of Systems - Review of Systems Systems not reviewed;Unavailable: Acuity of Condition Past Patient History - Medical History PMH: Anxiety, Arthritis, Dementia, Diabetes, HTN, Parkinson's Disease Denies: HIV, Chronic Kidney Disease - Surgical History Surgical History: Hernia Repair - Family History Family History: States: Unknown Family Hx - Past Medical History & Family History Past Medical History?: Yes - Past Social History Smoking Status: Never Smoked Alcohol: None Drugs: Denies Home Situation {Lives}: Alone - CARDIAC Hx Cardiac Disorders: Yes Hx Hypertension: Yes - PULMONARY Hx Respiratory Disorders: No - NEUROLOGICAL Hx Neurological Disorder: Yes Hx Dementia: Yes Hx Parkinson's Disease: Yes - HEENT Hx HEENT Problems: No - RENAL Hx Chronic Kidney Disease: No - ENDOCRINE/METABOLIC Hx Endocrine Disorders: Yes (DM) Hx Diabetes Mellitus Type 2: Yes - HEMATOLOGICAL/ONCOLOGICAL Hx Blood Disorders: No Hx Human Immunodeficiency Virus (HIV): No - INTEGUMENTARY Hx Dermatological Problems: No - MUSCULOSKELETAL/RHEUMATOLOGICAL Hx Musculoskeletal Disorders: Yes Hx Arthritis: Yes Hx Back Pain: Yes Hx Falls: Yes - GASTROINTESTINAL Hx Gastrointestinal Disorders: No - GENITOURINARY/GYNECOLOGICAL Hx Genitourinary Disorders: No - PSYCHIATRIC Hx Psychophysiologic Disorder: Yes Hx Anxiety: Yes Hx Substance Use: No - SURGICAL HISTORY Hx Surgeries: Yes Hx Herniorrhaphy: Yes - ANESTHESIA Hx Anesthesia: Yes Hx Anesthesia Reactions: No Meds Allergies/Adverse Reactions: Allergies Allergy/AdvReac Type Severity Reaction Status Date / Time No Known Allergies Allergy Verified 11/03/16 14:35 - Medications Medications: Current Medications Amlodipine Besylate (Norvasc) 5 mg PO DAILY [facility] Last Admin: 09/10/17 10:09 Dose: 5 mg Aspirin (Ecotrin) 81 mg PO DAILY [facility] Last Admin: 09/10/17 10:08 Dose: 81 mg Atorvastatin Calcium (Lipitor) 20 mg PO [facility] Benztropine Mesylate (Cogentin) 1 mg PO TID [facility] Last Admin: 09/10/17 10:09 Dose: 1 mg Enoxaparin Sodium (Lovenox) 40 mg SC DAILY [facility] PRN Reason: Protocol Nortriptyline HCl (Pamelor) 25 mg PO Q12 [facility] Last Admin: 09/10/17 10:08 Dose: 25 mg Quetiapine Fumarate (Seroquel) 25 mg PO Q12 PRN PRN Reason: Psychosis - Neurological Exam Neurological exam: Alert, CN II-XII Intact, Normal Gait, Oriented x3, Reflexes Normal - Psychiatric Exam Psychiatric exam: Normal Affect, Normal Mood - Skin Skin Exam: Dry, Intact, Normal Color, Warm Results - Vital Signs Recent Vital Signs: Last Vital Signs Temp 98.1 F 09/10/17 19:29 Pulse 84 12/05/17 19:29 Resp 20 09/10/17 19:29 BP 142/68 09/10/17 19:29 Pulse Ox 96 09/10/17 19:29 Normal sinus rhythm Possible septal infarct, age undetermined Abnormal ECG Prolonged QT Assessment & Plan (1) Abnormal EKG Status: Acute Priority: High (2) Movement disorder, R/O functional movement disorder versus Chorea, hemiballismus. Status: Acute (3) Dementia Status: Chronic Priority: High (4) Altered mental status. Status: Acute Priority: High (5) Leg pain Status: Acute (6) Renal insufficiency Status: Acute Priority: High (7) HTN (hypertension) Status: Chronic Priority: Medium (8) R/o Psychotic reaction due to Anger Past Patient History - Past Medical History & Family History Past Medical History?: Yes - Past Social History Smoking Status: Never Smoked Alcohol: None Drugs: Denies Home Situation {Lives}: Alone - CARDIAC Hx Cardiac Disorders: Yes Hx Hypertension: Yes - PULMONARY Hx Respiratory Disorders: No - NEUROLOGICAL Hx Neurological Disorder: Yes Hx Dementia: Yes Hx Parkinson's Disease: Yes - HEENT Hx HEENT Problems: No - RENAL Hx Chronic Kidney Disease: No - ENDOCRINE/METABOLIC Hx Endocrine Disorders: Yes (DM) Hx Diabetes Mellitus Type 2: Yes - HEMATOLOGICAL/ONCOLOGICAL Hx Blood Disorders: No Hx Human Immunodeficiency Virus (HIV): No - INTEGUMENTARY Hx Dermatological Problems: No - MUSCULOSKELETAL/RHEUMATOLOGICAL Hx Musculoskeletal Disorders: Yes Hx Arthritis: Yes Hx Back Pain: Yes Hx Falls: Yes - GASTROINTESTINAL Hx Gastrointestinal Disorders: No - GENITOURINARY/GYNECOLOGICAL Hx Genitourinary Disorders: No - PSYCHIATRIC Hx Psychophysiologic Disorder: Yes Hx Anxiety: Yes Hx Substance Use: No - SURGICAL HISTORY Hx Surgeries: Yes Hx Herniorrhaphy: Yes - ANESTHESIA Hx Anesthesia: Yes Hx Anesthesia Reactions: No Meds Allergies/Adverse Reactions: Allergies Allergy/AdvReac Type Severity Reaction Status Date / Time No Known Allergies Allergy Verified 11/03/16 14:35 - Medications Medications: Current Medications Amlodipine Besylate (Norvasc) 5 mg PO DAILY [facility] Last Admin: 09/10/17 10:09 Dose: 5 mg Aspirin (Ecotrin) 81 mg PO DAILY [facility] Last Admin: 09/10/17 10:08 Dose: 81 mg Atorvastatin Calcium (Lipitor) 20 mg PO HS [facility] Last Admin: 09/10/17 22:37 Dose: 20 mg Benztropine Mesylate (Cogentin) 1 mg PO TID [facility] Last Admin: 09/10/17 10:09 Dose: 1 mg Enoxaparin Sodium (Lovenox) 40 mg SC DAILY [facility] PRN Reason: Protocol Nortriptyline HCl (Pamelor) 25 mg PO Q12 [facility] Last Admin: 09/10/17 22:37 Dose: 25 mg Quetiapine Fumarate (Seroquel) 25 mg PO Q12 PRN PRN Reason: Psychosis Last Admin: 09/10/17 22:37 Dose: 25 mg Physical Exam - Neurological Exam Additional comments: Mental Status: Agitated, talks angry and non sense Unable to comment on his Orientation or memory Reported to be demented Remarkable Flinging movements of the neck and the 4 Extremities. Cranial nerves II to XII: Moves his Eyes symmetrically pupils are equal No Facial Asymmetry Central Tongue No Deficits seen Motor: No Rigidity normal or slightly reduced tone Moves both sides equally Remarkable Flinging movements of the neck and the 4 Extremities. DTR 0/4 Toes are down going bilaterally Sensory: intact pain Cerebellar: Unable to assess due to his excessive movements and non cooperation Results - Vital Signs Recent Vital Signs: Last Vital Signs Temp 98.1 F 09/10/17 19:29 Pulse 84 09/10/17 19:29 Resp 20 09/10/17 19:29 BP 142/68 09/10/17 19:29 Pulse Ox 96 09/10/17 19:29 - Labs Result Diagrams: 09/10/17 09:45 09/10/17 12:15 Labs: Laboratory Results - last 24 hr 09/10/17 09/10/17 09/10/17 01:22 06:54 09:45 WBC 7.0 RBC 4.11 L Hgb 12.2 Hct 37.1 MCV 90.1 MCH 29.8 MCHC 33.0 RDW 13.4 Plt Count 300 Sodium Potassium Chloride Carbon Dioxide Anion Gap BUN Creatinine Est GFR ( Amer) Est GFR (Non-Af Amer) POC Glucose (mg/dL) 116 H Random Glucose Calcium Total Bilirubin AST ALT Alkaline Phosphatase Troponin I < 0.0120 Total Protein Albumin Globulin Albumin/Globulin Ratio 09/10/17 09/10/17 09/10/17 09:45 11:33 12:15 WBC RBC Hgb Hct MCV MCH MCHC RDW Plt Count Sodium 142 Potassium 4.7 Chloride 106 Carbon Dioxide 24 Anion Gap 17 BUN 23 H Creatinine 1.3 Est GFR ( Amer) > 60 Est GFR (Non-Af Amer) 53 POC Glucose (mg/dL) 99 Random Glucose 98 Calcium 10.3 H Total Bilirubin 0.5 AST 50 ALT 51 Alkaline Phosphatase 92 Troponin I < 0.0120 Total Protein 8.3 H Albumin 4.2 Globulin 4.2 H Albumin/Globulin Ratio 1.0 09/10/17 09/10/17 09/10/17 16:06 16:40 22:16 WBC RBC Hgb Hct MCV MCH MCHC RDW Plt Count Sodium Potassium Chloride Carbon Dioxide Anion Gap BUN Creatinine Est GFR ( Amer) Est GFR (Non-Af Amer) POC Glucose (mg/dL) 114 H 110 Random Glucose Calcium Total Bilirubin AST ALT Alkaline Phosphatase Troponin I 0.0120 Total Protein Albumin Globulin Albumin/Globulin Ratio Assessment & Plan (1) Abnormal EKG Status: Acute Priority: High (2) Dementia Status: Chronic Priority: High (3) Altered mental status Status: Acute Priority: High (4) Benzodiazepine abuse Status: Acute (5) Change in mental status Status: Acute (6) Chronic back pain Status: Acute (7) Dehydration Status: Acute Priority: High (8) Chorea Assessment and Plan: Chorea is a nonrhythmic, jerky, rapid, non suppressible involuntary movement, mostly of the distal muscles and face; movements may be incorporated into semi purposeful acts that mask the involuntary movements. [place] disease is the most common degenerative disorder causing chorea. In Donald disease, drugs that suppress dopaminergic activity, such as antipsychotics (eg, risperidone, olanzapine), and dopamine- depleting drugs (eg, reserpine, tetrabenazine) can be used to treat chorea. Other causes of chorea include Hyperthyroidism Hypoparathyroidism Hyperglycemia SLE that affects the D[employer] EQUIPMENT REPA[employer]ER Drugs (eg, levodopa in patients with Parkinson disease, phenytoin, cocaine) Tardive dyskinesia (due to use of typical and most atypical antipsychotics) Autoimmune disorders Paraneoplastic syndromes [place] chorea can occur in rheumatic fever and may be the first symptom of it. A tumor or an infarct in the striatum (caudate or putamen) can cause acute unilateral chorea (hemichorea). [place] chorea and chorea due to infarcts of the caudate nucleus often lessen over time without treatment. This occurs in Young age. Chorea due to hyperthyroidism or another metabolic cause (eg, hyperglycemia) usually lessens when thyroid function or blood glucose level is normalized. Chorea in patients > 60 should be thoroughly evaluated to identify the cause (eg , toxic, metabolic, autoimmune, paraneoplastic). Hemiballismus is caused by a lesion, usually an infarct, in or around the contralateral subthalamic nucleus. Although disabling, hemiballismus is usually self-limited, lasting 6 to 8 wk. If severe, it can be treated with an antipsychotic for 1 to 2 mo. The most common acquired causes of chorea are cerebrovascular disease and, in the developing world, HIV infection - usually through its association with cryptococcal disease.[2] It might be also caused by Antiepileptic medicine like Dilantin Status: Acute (9) Hemiballismus Assessment and Plan: Flinging of his 4 Extremities and violent movements of the neck. No Rigidity that is usually associated with Parkinsonism. No tremors R/O CVA Status: Acute (10) Seizure Assessment and Plan: R/O Seizures due to his Excessive movements and his AMS Ballismus or ballism (called hemiballismus or hemiballism in its unilateral form) is a very rare movement disorder. It is a type of chorea caused in most cases by a decrease in activity of the subthalamic nucleus of the basal ganglia , resulting in the appearance of flailing, ballistic, undesired movements of the limbs. Status: Acute
[2017-09-11 06:22] LABS: URIC ACID 6.2 mg/Dl (3.5-8.5)
[2017-09-11 06:25] LABS: BILIRUBIN,TOTAL 0.3 mg/dl (0.2-1.3); CALCIUM 10.3 mg/dL (8.4-10.2); POTASSIUM 4.8 MMOL/L (3.6-5.0); TOTAL PROTEIN 7.8 G/DL (6.3-8.2)
[2017-09-11 06:49] LABS: THYROID STIMULATING HORMONE 5.32 mIU/ML (0.46-4.68)
[2017-09-11] MEDS: Enoxaparin 40 mg Syringe SC SCH (08:35)
--- NOTE | 2017-09-11 12:08 | CP.PCM.PN ---
Subjective - Date & Time of Evaluation Date of Evaluation: 09/11/17 Time of Evaluation: 10:20 - Subjective Subjective: F/U AMS Objective - Vital Signs/Intake and Output Vital Signs (last 24 hours): Temp Pulse Resp BP Pulse Ox 96.9 F L 92 H 18 121/73 97 09/11/17 08:00 09/11/17 08:00 09/11/17 08:00 09/11/17 08:36 09/11/17 08:00 - Medications Medications: Current Medications Amlodipine Besylate (Norvasc) 5 mg PO DAILY [facility] Last Admin: 09/11/17 08:36 Dose: 5 mg Aspirin (Ecotrin) 81 mg PO DAILY [facility] Last Admin: 09/11/17 08:35 Dose: 81 mg Atorvastatin Calcium (Lipitor) 20 mg PO HS [facility] Last Admin: 09/10/17 22:37 Dose: 20 mg Benztropine Mesylate (Cogentin) 1 mg PO TID [facility] Last Admin: 09/10/17 10:09 Dose: 1 mg Enoxaparin Sodium (Lovenox) 40 mg SC DAILY [facility] PRN Reason: Protocol Last Admin: 09/11/17 08:35 Dose: 40 mg Nortriptyline HCl (Pamelor) 25 mg PO Q12 [facility] Last Admin: 09/11/17 08:36 Dose: 25 mg Quetiapine Fumarate (Seroquel) 25 mg PO Q12 PRN PRN Reason: Psychosis Last Admin: 09/10/17 22:37 Dose: 25 mg - Labs Labs: 09/10/17 09:45 09/11/17 05:40 - Constitutional Appears: Agitated, Confused - Head Exam Head Exam: NORMAL INSPECTION Additional comments: Dry scab to R cheek - Eye Exam Eye Exam: PERRL - ENT Exam ENT Exam: Normal Exam - Neck Exam Neck Exam: Normal Inspection - Respiratory Exam Respiratory Exam: Clear to Ausculation Bilateral - Cardiovascular Exam Cardiovascular Exam: REGULAR RHYTHM Additional comments: Dry scab to middle chest - GI/Abdominal Exam GI & Abdominal Exam: Soft, Normal Bowel Sounds - Extremities Exam Additional comments: small multiple healed wounds LLE - Back Exam Back Exam: NORMAL INSPECTION - Neurological Exam Neurological Exam: Alert, Awake Additional comments: Forgetful, U/E, L/E and head with involuntary continuos movements. 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
--- NOTE | 2017-09-11 14:28 | US ---
PROCEDURE: Duplex ultrasound of the carotid and vertebral arteries. HISTORY: r/o CVA COMPARISON: 08/21/2017 TECHNIQUE: Grayscale and duplex Doppler evaluation of the cervical carotid and vertebral arteries were performed. The common carotid, carotid bifurcations and cervical ICA and proximal ECA were evaluated. The vertebral arteries were evaluated for gross patency and direction. FINDINGS: RIGHT CAROTID ARTERIES: Common Carotid Artery: Intimal thickening is present Maximal flow velocity of 100.3 cm/s. Carotid Bifurcation: Normal. Internal Carotid Artery:Heterogeneous plaque formation. Maximal flow velocity of 103.8 cm/s. External Carotid Artery (proximal branches): Normal. Maximal flow velocity of 89.9 cm/s. ICA/CCA Ratio: 1.2. LEFT CAROTID ARTERIES: Common Carotid Artery: Intimal thickening is present Maximal flow velocity of 115.7 cm/s. Carotid Bifurcation: Normal. Internal Carotid Artery:Heterogeneous plaque formation. Maximal flow velocity of 91.4 cm/s. External Carotid Artery (proximal branches): Normal. Maximal flow velocity of 86.6 cm/s. ICA/CCA Ratio: 0.8 VERTEBRAL ARTERIES: Right Vertebral Artery: Patent. Antegrade flow. Left Vertebral Artery: Patent. Antegrade flow. OTHER FINDINGS: None. IMPRESSION: No significant interval change compared to the prior examination(s). Right ICA degree of stenosis: Less than 50% Left ICA degree of stenosis: Less than 50% Reference Internal Carotid Artery (ICA) Peak Systolic Velocity (PSV) for above: 1. Less than 50% stenosis less than 125 cm/s peak systolic velocity 2. 50-69% stenosis 125-230cm/s peak systolic velocity 3. Greater than 70% but less than near occlusion greater than 230 cm/s peak systolic velocity
--- NOTE | 2017-09-11 14:46 | CP.PCM.PN ---
Subjective - Date & Time of Evaluation Date of Evaluation: 09/11/17 Time of Evaluation: 14:45 - Subjective Subjective: pt seen during EEG confused , agitated Objective - Vital Signs/Intake and Output Vital Signs (last 24 hours): Temp Pulse Resp BP Pulse Ox 97.5 F L 84 20 126/70 98 09/11/17 12:00 09/11/17 12:00 09/11/17 12:00 09/11/17 12:00 09/11/17 12:00 - Medications Medications: Current Medications Amlodipine Besylate (Norvasc) [address] [facility] Last Admin: 09/11/17 08:36 Dose: 5 mg Aspirin (Ecotrin) [address] [facility] Last Admin: 09/11/17 08:35 Dose: 81 mg Atorvastatin Calcium (Lipitor) [address] [facility] Last Admin: 09/10/17 22:37 Dose: 20 mg Benztropine Mesylate (Cogentin) [address] [facility] Last Admin: 09/10/17 10:09 Dose: 1 mg Enoxaparin Sodium (Lovenox) [address] [facility] PRN Reason: Protocol Last Admin: 09/11/17 08:35 Dose: 40 mg Nortriptyline HCl (Pamelor) [address] [facility] Last Admin: 09/11/17 08:36 Dose: 25 mg Quetiapine Fumarate (Seroquel) 25 mg PO Q12 PRN PRN Reason: Psychosis Last Admin: 09/10/17 22:37 Dose: 25 mg - Labs Labs: 09/10/17 09:45 09/11/17 05:40 - Constitutional Appears: Agitated, Confused - Head Exam Head Exam: ATRAUMATIC, NORMAL INSPECTION, NORMOCEPHALIC - Eye Exam Eye Exam: EOMI, Normal appearance, PERRL Pupil Exam: NORMAL ACCOMODATION, PERRL - ENT Exam ENT Exam: Mucous Membranes Moist, Normal Exam - Neck Exam Neck Exam: Full ROM, Normal Inspection. absent: Lymphadenopathy - Respiratory Exam Respiratory Exam: Clear to Ausculation Bilateral, NORMAL BREATHING PATTERN - Cardiovascular Exam Cardiovascular Exam: REGULAR RHYTHM, +S1, +S2 - GI/Abdominal Exam GI & Abdominal Exam: Soft, Normal Bowel Sounds. absent: Tenderness - Exam Exam: NORMAL INSPECTION - Extremities Exam Extremities Exam: Full ROM, Normal Capillary Refill, Normal Inspection. absent : Joint Swelling, Pedal Edema - Back Exam Back Exam: NORMAL INSPECTION - Neurological Exam Neurological Exam: Alert, Awake, CN II-XII Intact, Normal Gait, Oriented x3 - Psychiatric Exam Psychiatric exam: Normal Affect, Normal Mood - Skin Skin Exam: Dry, Intact, Normal Color, Warm Assessment and Plan (1) Abnormal EKG Assessment & Plan: will check echo Status: Acute (2) Parkinson disease Status: Deleted (3) Dementia Status: Chronic (4) Altered mental status Status: Acute (5) Leg pain Status: Acute (6) Renal insufficiency Status: Acute (7) HTN (hypertension) Assessment & Plan: cont asa, lipitor and amlodipine Status: Chronic
--- NOTE | 2017-09-12 00:01 | CP.PCM.PN ---
Subjective - Date & Time of Evaluation Date of Evaluation: 09/11/17 Time of Evaluation: 22:35 - Subjective Subjective: His mental status has improved Carotid doppler is non significant Bilaterally less than 50 % stenosis. High TSH 5.6 High ESR 61 High CRP 8 He was seen by cardiology and will have an Echo VS are normal except for occasional mild Tachycardia. His abnormal flinging movements are less seen. Objective - Vital Signs/Intake and Output Vital Signs (last 24 hours): Temp Pulse Resp BP Pulse Ox 99 F 90 20 125/56 L 100 09/11/17 19:37 09/11/17 19:37 09/11/17 19:37 09/11/17 19:37 09/11/17 19:37 Intake and Output: 09/11/17 09/12/17 18:59 06:59 Intake Total 1500 Output Total 200 Balance 1300 - Medications Medications: Current Medications Amlodipine Besylate (Norvasc) 5 mg PO DAILY [facility] Last Admin: 09/11/17 08:36 Dose: 5 mg Aspirin (Ecotrin) 81 mg PO DAILY [facility] Last Admin: 09/11/17 08:35 Dose: 81 mg Atorvastatin Calcium (Lipitor) 20 mg PO HS [facility] Last Admin: 09/11/17 21:17 Dose: 20 mg Benztropine Mesylate (Cogentin) 1 mg PO TID [facility] Last Admin: 09/10/17 10:09 Dose: 1 mg Enoxaparin Sodium (Lovenox) 40 mg SC DAILY [facility] PRN Reason: Protocol Last Admin: 09/11/17 08:35 Dose: 40 mg Nortriptyline HCl (Pamelor) 25 mg PO Q12 [facility] Last Admin: 09/11/17 21:17 Dose: 25 mg Quetiapine Fumarate (Seroquel) 25 mg PO Q12 PRN PRN Reason: Psychosis Last Admin: 09/10/17 22:37 Dose: 25 mg - Labs Labs: 09/10/17 09:45 09/11/17 05:40 Assessment and Plan (1) Abnormal EKG Status: Acute (2) Dementia Status: Chronic (3) Altered mental status Status: Acute (4) Benzodiazepine abuse Status: Acute (5) Change in mental status Status: Deleted (6) Chronic back pain Status: Acute (7) Dehydration Status: Acute (8) Chorea Status: Acute (9) Hemiballismus Status: Acute (10) Seizure Status: Acute
[2017-09-12 05:50] LABS: T4 8.22 ug/dl (5.5-11.0)
[2017-09-12 06:04] LABS: THYROID STIMULATING HORMONE 5.5 mIU/ML (0.46-4.68)
[2017-09-12] MEDS: Enoxaparin 40 mg Syringe SC SCH (08:42)
[2017-09-12 12:35] LABS: FT3 3.4 pg/mL (2.77-5.27)
--- NOTE | 2017-09-12 15:16 | CP.PCM.PN ---
Subjective - Date & Time of Evaluation Date of Evaluation: 09/12/17 Time of Evaluation: 11:50 - Subjective Subjective: F/U F/U Dementia. Pt awake, alert, no specific complaint. Objective - Vital Signs/Intake and Output Vital Signs (last 24 hours): Temp Pulse Resp BP Pulse Ox 97.6 F 95 H 18 119/70 96 09/12/17 12:50 09/12/17 12:50 09/12/17 12:50 09/12/17 12:50 09/12/17 12:50 - Medications Medications: Current Medications Amlodipine Besylate (Norvasc) 5 mg PO DAILY [facility] Last Admin: 09/12/17 08:42 Dose: 5 mg Aspirin (Ecotrin) 81 mg PO DAILY [facility] Last Admin: 09/12/17 08:42 Dose: 81 mg Atorvastatin Calcium (Lipitor) 20 mg PO HS [facility] Last Admin: 09/11/17 21:17 Dose: 20 mg Enoxaparin Sodium (Lovenox) 40 mg SC DAILY [facility] PRN Reason: Protocol Last Admin: 09/12/17 08:42 Dose: 40 mg Nortriptyline HCl (Pamelor) 25 mg PO Q12 [facility] Last Admin: 09/12/17 08:42 Dose: 25 mg Quetiapine Fumarate (Seroquel) 25 mg PO Q12 PRN PRN Reason: Psychosis Last Admin: 09/10/17 22:37 Dose: 25 mg - Labs Labs: 09/10/17 09:45 09/11/17 05:40 - Constitutional Appears: Confused - Head Exam Head Exam: NORMAL INSPECTION Additional comments: Dry scab to R cheek - Eye Exam Eye Exam: PERRL - ENT Exam ENT Exam: Normal Exam - Neck Exam Neck Exam: Normal Inspection - Respiratory Exam Respiratory Exam: Clear to Ausculation Bilateral - Cardiovascular Exam Cardiovascular Exam: REGULAR RHYTHM Additional comments: Dry scab to middle chest - GI/Abdominal Exam GI & Abdominal Exam: Soft, Normal Bowel Sounds - Extremities Exam Additional comments: Small multiple healed wounds LLE - Back Exam Back Exam: NORMAL INSPECTION - Neurological Exam Neurological Exam: Alert, Awake Additional comments: Forgetful, confused, U/E, L/E and head with involuntary continuos movements - Psychiatric Exam Psychiatric exam: Agitated - Skin Skin Exam: Warm Assessment and Plan (1) Dementia Status: Chronic (2) Abnormal EKG Status: Acute (3) HTN (hypertension) Status: Chronic (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 Continue current Tx.
--- NOTE | 2017-09-12 15:30 | PCM.EEG ---
Electroencephalogram Report - Electroencephalogram Report Procedure Date: 09/11/17 Interpretation: Indication: Possible seizure. Medications were reviewed. Technical: This is a digitally recorded electroencephalogram. The international 10-20 electrode placement system is used for scalp electrode placement. Eighteen channels of scalp EEG are recorded One channel was used for EOG. Another channel was used for for ECG. The data are stored digitally and reviewed in reformatted montages for optimal display. Background: 9 to 10 hertz alpha activity was seen. Maximal over the posterior head region. Diffuse Abnormality: Increased beta activity was seen intermittently. Focal abnormality : Periodic lateralized discharge was seen. Mainly over the Left temporal area. Impression: This EEG is abnormal. Epileptiform discharge was seen. This can represent a potential seizure focus. Clinical correlation is needed.
--- NOTE | 2017-09-13 00:02 | CP.PCM.PN ---
Subjective - Date & Time of Evaluation Date of Evaluation: 09/12/17 Time of Evaluation: 23:00 - Subjective Subjective: Choreiformic movements are less prominent but still seen. Patient has an abnormal EEG C/W seizures. 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 The treatment of choice for is Tetrabenazine, also neuroleptic drugs like Haldol, Risperdal or Seroquel at a higher dose. Also Benzodiazepine, Neurontin, Gabapentin or Valproic acid His seizures might be treated by any Antiepileptic drug. I am requesting Dr Laurel Garcia for his treatment. 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 and also Valproic acid ( Depakote ER ) 250 mg Q 12 hrs for 3 days to be increased to 500 mg Q 12 hrs. Depakote will help for seizures and Behavioral Problems. He has normal Platelets and Normal LFT. Gabapentin 300 mg Q 12 hrs may be given later on in case of non response. Objective - Vital Signs/Intake and Output Vital Signs (last 24 hours): Temp Pulse Resp BP Pulse Ox 97.7 F 88 20 131/58 L 94 L 09/12/17 16:22 09/12/17 16:22 09/12/17 16:22 09/12/17 16:22 09/12/17 16:22 Intake and Output: 09/12/17 09/13/17 18:59 06:59 Intake Total 240 Balance 240 - Medications Medications: Current Medications Amlodipine Besylate (Norvasc) 5 mg PO DAILY [facility] Last Admin: 09/12/17 08:42 Dose: 5 mg Aspirin (Ecotrin) 81 mg PO DAILY [facility] Last Admin: 09/12/17 08:42 Dose: 81 mg Atorvastatin Calcium (Lipitor) 20 mg PO HS [facility] Last Admin: 09/12/17 21:03 Dose: 20 mg Enoxaparin Sodium (Lovenox) 40 mg SC DAILY [facility] PRN Reason: Protocol Last Admin: 09/12/17 08:42 Dose: 40 mg Nortriptyline HCl (Pamelor) 25 mg PO Q12 [facility] Last Admin: 09/12/17 21:03 Dose: 25 mg Quetiapine Fumarate (Seroquel) 25 mg PO Q12 PRN PRN Reason: Psychosis Last Admin: 09/10/17 22:37 Dose: 25 mg - Labs Labs: 09/10/17 09:45 09/11/17 05:40 Assessment and Plan (1) Abnormal EKG Status: Acute (2) Dementia Status: Chronic (3) Altered mental status Status: Acute (4) Benzodiazepine abuse Status: Acute (5) Change in mental status Status: Deleted (6) Chronic back pain Status: Acute (7) Dehydration Status: Acute (8) Chorea Status: Acute (9) Hemiballismus Status: Acute (10) Seizure Status: Acute
--- NOTE | 2017-09-13 00:28 | CP.PCM.PN ---
Subjective - Date & Time of Evaluation Date of Evaluation: 09/12/17 Time of Evaluation: 18:00 Objective - Vital Signs/Intake and Output Vital Signs (last 24 hours): Temp Pulse Resp BP Pulse Ox 97.6 F 68 20 99/62 L 95 09/13/17 00:14 09/13/17 00:14 09/13/17 00:14 09/13/17 00:14 09/13/17 00:14 Intake and Output: 09/12/17 09/13/17 18:59 06:59 Intake Total 240 Balance 240 - Medications Medications: Current Medications Amlodipine Besylate (Norvasc) 5 mg PO DAILY [facility] Last Admin: 09/12/17 08:42 Dose: 5 mg Aspirin (Ecotrin) 81 mg PO DAILY [facility] Last Admin: 09/12/17 08:42 Dose: 81 mg Atorvastatin Calcium (Lipitor) 20 mg PO HS [facility] Last Admin: 09/12/17 21:03 Dose: 20 mg Enoxaparin Sodium (Lovenox) 40 mg SC DAILY [facility] PRN Reason: Protocol Last Admin: 09/12/17 08:42 Dose: 40 mg Nortriptyline HCl (Pamelor) 25 mg PO Q12 [facility] Last Admin: 09/12/17 21:03 Dose: 25 mg Quetiapine Fumarate (Seroquel) 25 mg PO Q12 PRN PRN Reason: Psychosis Last Admin: 09/10/17 22:37 Dose: 25 mg - Labs Labs: 09/10/17 09:45 09/11/17 05:40 - Constitutional Appears: Well - Head Exam Head Exam: ATRAUMATIC, NORMAL INSPECTION, NORMOCEPHALIC - Eye Exam Eye Exam: EOMI, Normal appearance, PERRL Pupil Exam: NORMAL ACCOMODATION, PERRL - ENT Exam ENT Exam: Mucous Membranes Moist, Normal Exam - Neck Exam Neck Exam: Full ROM, Normal Inspection. absent: Lymphadenopathy - Respiratory Exam Respiratory Exam: Clear to Ausculation Bilateral, NORMAL BREATHING PATTERN - Cardiovascular Exam Cardiovascular Exam: REGULAR RHYTHM, +S1, +S2. absent: Murmur - GI/Abdominal Exam GI & Abdominal Exam: Soft, Normal Bowel Sounds. absent: Tenderness - Rectal Exam Rectal Exam: NORMAL INSPECTION - Exam Exam: Circumcision, NORMAL INSPECTION External exam: NORMAL EXTERNAL EXAM Speculum exam: NORMAL SPECULUM EXAM Bimanual exam: NORMAL BIMANUAL EXAM - Extremities Exam Extremities Exam: Full ROM, Normal Capillary Refill, Normal Inspection. absent : Joint Swelling, Pedal Edema - Back Exam Back Exam: NORMAL INSPECTION - Neurological Exam Neurological Exam: Alert, Awake, CN II-XII Intact, Normal Gait, Oriented x3 - Psychiatric Exam Psychiatric exam: Normal Affect, Normal Mood - Skin Skin Exam: Dry, Intact, Normal Color, Warm Assessment and Plan (1) Abnormal EKG Status: Acute (2) Parkinson disease Status: Deleted (3) Dementia Status: Chronic (4) Altered mental status Status: Acute (5) Leg pain Status: Acute (6) Renal insufficiency Status: Acute (7) HTN (hypertension) Status: Chronic
--- NOTE | 2017-09-13 08:59 | CP.PCM.PCO ---
Assessment & Plan - Assessment and Plan (Free Text) Assessment: pt. sitting up in bed, awake alert, denies sob, cp, Dr. Esparza's note appreciated and meds reviewed with Ax per recommendation meds changed for dx Chorea and possibly for seizures. started Haldol 2 mg po BID scheduled for chorea Seroquel discontinued Valproic acid ( Depakote ER ) 250 mg Q 12 hrs for 3 days to be increased to 500 mg Q 12 hrs gradually for seizures pt. may be started on Gabapentin 300 mg Q 12 if sx do not improve in the future cont. to monitor meds for SE monitor cbc, cmp, LFT
[2017-09-13] MEDS ORDERED: Divalproex 250 mg DR(BID formulation) PO SCH (09:00)
[2017-09-13] MEDS: Enoxaparin 40 mg Syringe SC SCH (09:25)
[2017-09-13 16:00] VITALS: BP 110/67; PULSE 87; RESP 19; TEMP 97.7; O2SAT 97
--- NOTE | 2017-09-14 01:18 | CP.PCM.PN ---
Subjective - Date & Time of Evaluation Date of Evaluation: 09/13/17 Time of Evaluation: 12:00 - Subjective Subjective: Patient was started on Po Haldol 2 mg Q 12 hrs, Po Depakote ER 250 mg Q 12 hrs. In case his Chorea does not respond will be adding Gabapentin. Gabapentin is not used a a seizures treatment of choice now. Objective - Vital Signs/Intake and Output Vital Signs (last 24 hours): Temp Pulse Resp BP Pulse Ox 97.7 F 87 19 110/67 97 09/13/17 15:59 09/13/17 15:59 09/13/17 15:59 09/13/17 15:59 09/13/17 15:59 - Labs Labs: 09/10/17 09:45 09/11/17 05:40 Assessment and Plan (1) Abnormal EKG Status: Acute (2) Dementia Status: Chronic (3) Altered mental status Status: Acute (4) Benzodiazepine abuse Status: Acute (5) Change in mental status Status: Deleted (6) Chronic back pain Status: Acute (7) Dehydration Status: Acute (8) Chorea Status: Acute (9) Hemiballismus Status: Acute (10) Seizure Status: Acute
== END 2017-09-13 16:20 | DRG 884 ==
LOC: H.ER 16:22 → H.ERHOLD 17:43 → H.TEL 22:12 → OBSVTOIN 09-10 11:48 → H.MEDSURG1 09-12 12:47
PROVIDERS: ADMIT Internal Medicine Pulmonary Disease; ATTEND Internal Medicine Pulmonary Disease
PROC: 3E0234Z Introduction of Serum, Toxoid and Vaccine into Muscle, Percutaneous Approach (ICD-10-PCS; principal; 2017-09-10)
DX: F03.90 Unspecified dementia, unspecified severity, without behavioral disturbance, psychotic disturbance, mood disturbance, and anxiety (principal); E11.21 Type 2 diabetes mellitus with diabetic nephropathy; E11.65 Type 2 diabetes mellitus with hyperglycemia; G10 Huntington's disease; G20 Parkinson's disease; F13.10 Sedative, hypnotic or anxiolytic abuse, uncomplicated; G24.01 Drug induced subacute dyskinesia; G89.29 Other chronic pain; I10 Essential (primary) hypertension; N28.9 Disorder of kidney and ureter, unspecified; R56.9 Unspecified convulsions; Z79.82 Long term (current) use of aspirin; Z79.899 Other long term (current) drug therapy; F41.9 Anxiety disorder, unspecified; F45.9 Somatoform disorder, unspecified; M19.90 Unspecified osteoarthritis, unspecified site; M54.9 Dorsalgia, unspecified; M79.606 Pain in leg, unspecified; R00.0 Tachycardia, unspecified; R41.82 Altered mental status, unspecified; R94.01 Abnormal electroencephalogram [EEG]; R94.31 Abnormal electrocardiogram [ECG] [EKG]; E05.90 Thyrotoxicosis, unspecified without thyrotoxic crisis or storm; E20.9 Hypoparathyroidism, unspecified; E86.0 Dehydration; Z23 Encounter for immunization